=== PATIENT | female | born 1995 | race Caucasian/White ===

== ENCOUNTER 2020-01-09 14:56 | Outpatient (CLI) | payer BC, SELFPAY ==
--- NOTE | ~2020-01-09 | US_ITS ---
EXAMINATION: US OB follow up DATE: 01/09/2020 15:47 INDICATION: Estimated weight during second trimester TECHNIQUE: Real-time ultrasound of the pelvis was performed. The interpreting radiologist was not pre sent for the study. COMPARISON: 11/10/2019 FINDINGS: There is a single living fetus in vertex presentation. The placenta is posterior and 10 cm from the internal cervical os. cardiac activity and movement are noted. heart rate is 133 beats per minute (bpm). The amniotic fluid index is subjectively normal. The following biometric data were obtained: Biparietal diameter (BPD): 7.2 cm; head circumference (HC): 27.6 cm; abdominal circumference (AC): 28 .6 cm; femur length (FL): 6.0 cm. These measurements are concordant. Estimated weight is 1831 g +/- 274 g, which correlates with the >97th percentile when 04/02/2020 is used as estimated date of delivery. As single measurements, these parameters are each equal to the following estimated gestational ages w ith ranges of +/- 2 standard deviations: BPD: 29 weeks 0 days +/- 2 weeks 1 days. HC: 30 weeks 2 days +/- 3 weeks 0 days. AC: 32 weeks 5 days +/- 3 weeks 0 days. FL: 31 weeks 4 days +/- 3 weeks 0 days. estimated gestational age based solely on measurements from this exam is 30 weeks 6 days +/- 2 weeks 1 days. IMPRESSION: 1. Single living fetus in vertex presentation. 2. Estimated weight is 1831 g +/- 274 g, which correlates with the >97th percentile when 04/02/20 20 is used as estimated date of delivery. Reviewed, dictated and finalized at location A. 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 Single living fetus in vertex presentation. 2. Estimated weight is 1831 g +/- 274 g, which correlates with the >97th percentile when 04/02/2020 is used as estimated date of delivery.
== END 2020-01-09 14:57 | disposition home or self-care (01) ==
PROVIDERS: PCP Family Medicine; Visit Provider Obstetrics & Gynecology
DX: O36.63X0 Maternal care for excessive fetal growth, third trimester, not applicable or unspecified (principal)
CPT/HCPCS: 76816

== ENCOUNTER 2020-01-17 15:25 | Observation (INO) | payer BC, SELFPAY ==
[2020-01-17] VITALS (8 sets, daily range): BP systolic 104; BP diastolic 58; PULSE 109–136; RESP 20; TEMP 36.9; O2SAT 95–100
[2020-01-17] MEDS: TERBUTALINE SULFATE 1 MG/ML VIAL 0.25 MG SUB-Q (16:25)
--- NOTE | 2020-01-22 08:10 | PM.OBTRLD ---
OB - Triage/Final Diagnosis Final Diagnosis (1) Cramping affecting , antepartum: Code(s): O26.899 - Other specified related conditions, unspecified trimester; R10.9 - Unspecified abdominal pain Status: Acute
== END 2020-01-17 18:20 | disposition home or self-care (01) ==
PROVIDERS: Admitting Provider Obstetrics & Gynecology Gynecology; PCP Family Medicine; Visit Provider Obstetrics & Gynecology Gynecology
DX: O26.893 Other specified pregnancy related conditions, third trimester (principal); R10.9 Unspecified abdominal pain; Z3A.29 29 weeks gestation of pregnancy
CPT/HCPCS: 96372; G0378; G0379; J3105

== ENCOUNTER 2020-01-26 17:31 | Observation (INO) | payer BC, SELFPAY ==
[2020-01-26 17:51] VITALS: BMI 49.5
--- NOTE | 2020-01-26 17:51 | OBADM ---
This patient, Stacey Lin, admitted to the OB room 116 at 1731 for observation for decreased movement and contractions. Patient/family oriented to hospital policies and general routines including ID bracelet, bed and alarms, visiting hours, pain management, procedures, bathroom and other care routines, personal items, smoking policy, room service/diet, and visiting hours. Patient/Family are encouraged to report perceived risks to care and to ask questions if they do not understand what they are told or what they should do.
[2020-01-26 17:58] VITALS: BP 114/74; PULSE 105
[2020-01-26 18:00] VITALS: BP 118/71; PULSE 103; RESP 18; TEMP 36.5
[2020-01-26] MEDS: TERBUTALINE SULFATE 1 MG/ML VIAL 0.25 MG SUB-Q (19:03)
[2020-01-26 20:15] VITALS: BP 119/69; PULSE 92
--- NOTE | 2020-02-05 09:27 | PM.OBTRLD ---
OB - Triage/Final Diagnosis Visit Information Reason for evaluation: decreased movement and threatened labor
== END 2020-01-26 20:30 | disposition home or self-care (01) ==
PROVIDERS: Admitting Provider Obstetrics & Gynecology Gynecology; PCP Family Medicine; Visit Provider Obstetrics & Gynecology Gynecology
DX: O47.03 False labor before 37 completed weeks of gestation, third trimester (principal); O36.8130 Decreased fetal movements, third trimester, not applicable or unspecified; Z3A.30 30 weeks gestation of pregnancy
CPT/HCPCS: 96372; G0378; G0379; J3105

== ENCOUNTER 2020-02-11 14:51 | Observation (INO) | payer BC, SELFPAY ==
[2020-02-11] VITALS (14 sets, daily range): BP systolic 115; BP diastolic 67; PULSE 97–117; TEMP 37.2; O2SAT 95–99; BMI 42.7
[2020-02-11] MEDS: FAMOTIDINE 20 MG TABLET PO (16:03)
[2020-02-11] MEDS: TERBUTALINE SULFATE 1 MG/ML VIAL 0.25 MG SUB-Q ×2 (16:03→16:35)
[2020-02-11 16:14] LABS: Add Urine Microscopic? NO; Appearance Urine Clear (Clear); Bilirubin Urine Negative (Negative); Blood Urine Negative (Negative); Color Urine Yellow (Yellow); Glucose Urine UA Negative (Negative); Ketones Urine Negative (Negative); Leukocyte Esterase Ur Negative LEU/UL (NEGATIVE); Nitrate Urine Negative (Negative); Protein Urine Negative (Negative); Specific Grav Ur 1.016 (1.001-1.035); Urobilinogen Urine Negative mg/dL (<2.0)
[2020-02-11 16:39] LABS: Fetal Fibronectin Negative
--- NOTE | 2020-02-11 17:11 | OBADM ---
This patient, Stacey Lin, admitted to the OB room OB Post 116 for observation. Patient/family oriented to hospital policies and general routines including ID bracelet, bed and alarms, visiting hours, pain management, procedures, bathroom and other care routines, personal items, smoking policy, room service/diet, and visiting hours. Patient/Family are encouraged to report perceived risks to care and to ask questions if they do not understand what they are told or what they should do.
--- NOTE | 2020-02-11 17:15 | PC.NURSE ---
1540- on unit, reviewed fhr strip, order received for terbutaline,SVE, and FFN.
--- NOTE | 2020-02-11 17:15 | PC.NURSE ---
1650- on unit,reviewed fhr strip and lab results. Discharge order received.
--- NOTE | 2020-02-11 17:19 | P.PNOB_ITS ---
OB - Triage/Final Diagnosis Visit Information Date of evaluation: 02/11/20 Comments/Additional reasons for admission: contractions Evaluation Laboratory results: Laboratory Tests 02/11/20 02/11/20 16:01 16:01 Urine Color Yellow Urine Appearance Clear Urine pH 6.0 Ur Specific [place] 1.016 Urine Protein Negative Urine Glucose (UA) Negative Urine Ketones Negative Ur Blood (Man) Negative Urine Nitrate Negative Urine Bilirubin Negative Urine Urobilinogen Negative Ur Leukocyte Esterase Negative Fibronectin Negative Vital signs: Vital Signs - 24 hr 02/11/20 15:19 02/11/20 15:58 02/11/20 16:00 Temperature 37.2 C Pulse Rate 104 H Blood Pressure 115/67 Pulse Oximetry 96 02/11/20 16:03 02/11/20 16:08 02/11/20 16:13 Temperature Pulse Rate Blood Pressure Pulse Oximetry 95 95 96 02/11/20 16:18 02/11/20 16:23 02/11/20 16:28 Temperature Pulse Rate Blood Pressure Pulse Oximetry 95 98 99 02/11/20 16:33 02/11/20 16:38 02/11/20 16:43 Temperature Pulse Rate Blood Pressure Pulse Oximetry 99 98 99 02/11/20 16:48 02/11/20 16:53 Temperature Pulse Rate Blood Pressure Pulse Oximetry 98 99
== END 2020-02-11 17:00 | disposition home or self-care (01) ==
PROVIDERS: Admitting Provider Obstetrics & Gynecology; PCP Family Medicine; Visit Provider Obstetrics & Gynecology
DX: O60.03 Preterm labor without delivery, third trimester (principal); Z3A.32 32 weeks gestation of pregnancy
CPT/HCPCS: 81003; 82731; 87086; 87088; 96372; A9270; G0378; G0379; J3105

== ENCOUNTER 2020-02-20 09:48 | Outpatient (CLI) | payer BC, SELFPAY ==
--- NOTE | ~2020-02-20 | US_ITS ---
EXAMINATION: US OB follow up DATE: 02/20/2020 10:18 INDICATION: Size and dating assessment during third trimester TECHNIQUE: Real-time ultrasound of the pelvis was performed. The interpreting radiologist was not pre sent for the study. COMPARISON: 01/09/2020 FINDINGS: There is a single living fetus in vertex presentation. The placenta is posterior. car diac activity and movement are noted. heart rate is 144 beats per minute (bpm). The amnio tic fluid index is 16.6 cm which is normal. The following biometric data were obtained: Biparietal diameter (BPD): 8.7 cm; head circumference (HC): 30.6 cm; abdominal circumference (AC): 32 .2 cm; femur length (FL): 6.7 cm. These measurements are concordant. Estimated weight is 2680 g +/- 402 g, which correlates with the 84th percentile when 04/02/2020 i s used as estimated date of delivery. The following biometric data were obtained: Biparietal diameter (BPD): 8.73 cm; head circumference (HC): 0.6 cm; abdominal circumference (AC): 32 .2 cm; femur length (FL): 6.7 cm. These measurements are concordant. Estimated weight is 2680 g +/- 2 g, which correlates with the 84th percentile when 04/02/2020 is used as estimated date of delivery. As single measurements, these parameters are each equal to the following estimated gestational ages w ith ranges of +/- 2 standard deviations: BPD: 35 weeks 1 days ( 32 weeks 1 days - 38 weeks 2 days). HC: 34 weeks 1 days ( 31 weeks 1 days - 37 weeks 1 days). AC: 36 weeks 1 days ( 33 weeks 1 days - 39 weeks 1 days). FL: 34 weeks 5 days ( 31 weeks 5 days - 37 weeks 5 days). estimated gestational age based solely on measurements from this exam is 35 weeks 0 days +/- 2 weeks 3 days. IMPRESSION: 1. Single living fetus in vertex presentation. 2. Estimated weight is 2680 g +/- 2 g, which correlates with the 84th percentile when 04/02/2020 is used as estimated date of delivery. 3. Normal amniotic fluid index. Reviewed, dictated and finalized at location B. IMPRESSION: 1. Single living fetus in vertex presentation. 2. Estimated weight is 2680 g +/- 2 g, which correlates with the 84th per centile when 04/02/2020 is used as estimated date of delivery. 3. Normal amniotic fluid index.
== END 2020-02-20 09:49 | disposition home or self-care (01) ==
PROVIDERS: PCP Family Medicine; Visit Provider Obstetrics & Gynecology Gynecology
DX: O36.60X0 Maternal care for excessive fetal growth, unspecified trimester, not applicable or unspecified (principal); Z3A.00 Weeks of gestation of pregnancy not specified
CPT/HCPCS: 76816

== ENCOUNTER 2020-03-03 15:04 | Observation (INO) | payer BC, SELFPAY ==
[2020-03-03 15:30] VITALS: TEMP 36.3
[2020-03-03 15:31] VITALS: BP 105/66; PULSE 90
[2020-03-03 15:46] VITALS: BP 109/69; PULSE 80
[2020-03-03 16:00] VITALS: BMI 51.6
[2020-03-03 16:01] VITALS: BP 109/69; PULSE 83
[2020-03-03 16:16] VITALS: BP 108/71; PULSE 81
[2020-03-03 16:31] VITALS: BP 109/67; PULSE 83
--- NOTE | 2020-03-03 16:45 | PC.NURSE ---
1613- called, informed pt came in stating she has had lower back pain since last night and has been kennedi around every 5 minutes today. Informed SVE is 0.5 cm and thick, orders received to discharge pt home with labor precautions.
--- NOTE | 2020-03-05 07:35 | PM.OBTRLD ---
OB - Triage/Final Diagnosis Final Diagnosis (1) False labor: Code(s): O47.9 - False labor, unspecified Status: Acute
== END 2020-03-03 16:40 | disposition home or self-care (01) ==
PROVIDERS: Admitting Provider Obstetrics & Gynecology Gynecology; PCP Family Medicine; Visit Provider Obstetrics & Gynecology Gynecology
DX: O47.03 False labor before 37 completed weeks of gestation, third trimester (principal); Z3A.35 35 weeks gestation of pregnancy
CPT/HCPCS: G0378; G0379

== ENCOUNTER 2020-03-20 14:32 | Inpatient (IN) | payer BC, SELFPAY ==
[2020-03-20] VITALS (51 sets, daily range): BP systolic 88–129; BP diastolic 44–83; PULSE 58–114; TEMP 36.4–37.1; O2SAT 93–100; BMI 52.7
--- NOTE | 2020-03-20 15:53 | LDADM ---
This patient, Stacey Lin, was admitted to Labor/Delivery/Recovery 107 on 03/20/20 at 14:32. Plans for labor, pain management and were discussed with patient. Patient/family oriented to hospital policies and general routines including ID bracelet, bed and alarms, visiting hours, pain management, procedures, bathroom and other care routines, personal items, smoking policy, room service/diet and guest tray routines, security routines, and visiting hours. Patient/Family are encouraged to report perceived risks to care and to ask questions if they do not understand what they are told or what they should do. See OBIX for further documentation.
[2020-03-20 15:57] LABS: Glucose Point of Care 84 (65-105)
[2020-03-20 15:59] LABS: Basophils Absolute Auto 0.1 K/mm3 (0.0-0.1); Basophils Percent Auto 0.6 % (0.2-1.2); Eosinophils Percent Auto 0.3 % (0-4.4); Immature Granulocyte Absolute 0.51 K/mm3 (0.00-0.031); Immature Granulocyte Percent A 4.4 % (0-0.5); Lymphocytes Absolute Auto 1.53 K/mm3 (0.9-3.2); Lymphocytes Percent Auto 13.2 % (18.3-44.2); Mean Corpuscular HGB Conc 33.3 g/dl (32-36); Mean Corpuscular Hemoglobin 30.2 pg (26-34); Mean Corpuscular Volume 90.7 fl (80-100); Mean Platelet Volume 10.9 fl (7.4-10.4); Monocytes Absolute Auto 1.2 K/mm3 (0.1-0.6); Monocytes Percent Auto 10.7 % (2.6-8.5); Neutrophils Absolute Auto 8.2 K/mm3 (1.3-6.7); Neutrophils Percent Auto 70.8 % (45.5-73.1); Platelet Count Result 200 k/mm3 (150-375); Red Blood Count 3.97 M/mm3 (4.2-5.4); Red Cell Distribution Width 14.5 % (11.5-14.5); White Blood Count 11.6 K/mm3 (4.5-10.0)
[2020-03-20] MEDS: LACTATED RINGERS 1,000 ML 125 ML IV CONT ×3 (16:22→23:52)
[2020-03-20] MEDS: OXYTOCIN 30 UNITS/NS 500 ML 30 UNITS/500 ML BAG 6 UNITS IV CONT (16:23)
--- NOTE | 2020-03-20 17:24 | P.PNAN_ITS ---
Anes - Eval Pre Procedure Procedure: Labor epidural Date/Time: 03/20/20 17:24 Surgeon: Beatriz Preop Diagnosis: pain during labor Pre Op Diagnosis: SROM Patient Data Age: 24 Gender: F Height: 1.52 m Weight: 122.5 kg Last Vital Signs Pulse 101 H 03/20/20 17:16 BP 126/68 03/20/20 17:16 Allergies Allergy/AdvReac Type Severity Reaction Status Date / Time No Known Allergies Allergy Verified 03/04/20 13:29 Home Medications Medication Instructions Recorded Confirmed Type PNV cmb#95-ferrous fumarate-FA 1 tablet PO DAILY 10/12/19 03/20/20 History [] sertraline [Zoloft] 50 mg PO DAILY 10/12/19 03/20/20 History ergocalciferol (vitamin D2) 50,000 unit PO WEEKLY 01/26/20 03/20/20 History [Vitamin D2] ferrous sulfate 325 mg PO BID 01/26/20 03/20/20 History Laboratory Tests 03/20/20 03/20/20 03/20/20 15:47 15:47 15:52 WBC 11.6 K/mm3 H K/mm3 (4.5-10.0) RBC 3.97 M/mm3 L M/mm3 (4.2-5.4) Hgb 12.0 g/dL g/dL (12.0-15.0) Hct 36.0 % L % (37.0-47.0) MCV 90.7 fl fl (80-100) MCH 30.2 pg pg (26-34) MCHC 33.3 g/dl g/dl (32-36) RDW 14.5 % % (11.5-14.5) Plt Count 200 k/mm3 k/mm3 (150-375) MPV 10.9 fl H fl (7.4-10.4) Immature Gran % (Auto) 4.4 % H % (0-0.5) Neut % (Auto) 70.8 % % (45.5-73.1) Lymph % (Auto) 13.2 % L % (18.3-44.2) [place] % (Auto) 10.7 % H % (2.6-8.5) Eos % (Auto) 0.3 % % (0-4.4) Baso % (Auto) 0.6 % % (0.2-1.2) Lymph # (Auto) 1.53 K/mm3 K/mm3 (0.9-3.2) [place] # (Auto) 1.2 K/mm3 H K/mm3 (0.1-0.6) Eos # (Auto) 0.0 K/mm3 K/mm3 (0-0.3) Baso # (Auto) 0.1 K/mm3 K/mm3 (0.0-0.1) Abs Immat Gran (auto) 0.51 K/mm3 H K/mm3 (0.00-0.031) Absolute Neuts (auto) 8.2 K/mm3 H K/mm3 (1.3-6.7) Absolute Nucleated RBC 0.0 K/mm3 K/mm3 (0.0-0.012) Nucleated RBC % 0.0 % % (0.0-0.2) POC Capillary Glucose 84 mg/dl mg/dl (65-105) RPR Pending Patient hx anesthesia problems: none Family hx anesthesia problems: none PMFSH Past Medical History Medical History (Updated 03/20/20 @ 17:25 by Jaye Ashley CRNA) Depression Morbid obesity with BMI of 50.0-59.9, adult Family History Family History (Updated 03/04/20 @ 13:31 by Reji Rojas RN) Mother Depression Family history of obesity Hypertension Social History Social History Smoking status: Never smoker Second hand tobacco smoke exposure: No Alcohol intake: never Substance use: never Spiritual care concerns: No Exam Day of Procedure 03/20/20 17:24
[2020-03-20 20:14] LABS: Glucose Point of Care 85 (65-105)
[2020-03-20] MEDS: ACETAMINOPHEN 325 MG TABLET 650 MG PO (21:59)
[2020-03-21] VITALS (158 sets, daily range): BP systolic 69–128; BP diastolic 29–80; PULSE 26–189; RESP 18; TEMP 36.1–38; O2SAT 76–100
[2020-03-21 00:35] LABS: Glucose Point of Care 100 (65-105)
[2020-03-21 02:19] LABS: Glucose Point of Care 93 (65-105)
[2020-03-21] MEDS: LACTATED RINGERS 1,000 ML 125 ML IV CONT ×2 (02:56→06:56)
[2020-03-21] MEDS: AMPICILLIN 2 GM/NS 100 ML 2 GM/100 ML BAG IVPB (04:05)
[2020-03-21 04:47] LABS: Glucose Point of Care 82 (65-105)
[2020-03-21] MEDS: ONDANSETRON INJ 4 MG/2 ML VIAL IV PUSH (05:24)
[2020-03-21 07:14] LABS: Glucose Point of Care 76 (65-105)
--- NOTE | 2020-03-21 07:41 | WPDOBADMIT ---
Obstetrics - Admit Note Admission Note: record reviewed. No pertinent additions to the history and/or any subsequent changes in the physical findings that are not consistent with the expected course of the were found. Additions to the history and/or subsequent changes in the physical findings follow. None.Here for SROM. Augmented with Pitocin and now 9.5 cm. FHTs reactive.
[2020-03-21] MEDS: AMPICILLIN 1 GM/NS 50 ML 1 GM/50 ML BAG IVPB (07:46)
--- NOTE | 2020-03-21 10:08 | P.PCNOB_ITS ---
OB - Delivery Note Procedure Delivery date: 03/21/20 Procedure: events: Prolonged Rupture of Membrane Intrapartal events: None Induction method: per pitocin protocol Delivery monitor: external FHT and external uterine Route of delivery: Laceration description: Perineal - 2nd Degree Delivery repair: vicryl (3-0 ) Specimen: Yes Estimated blood loss (mL): 500 Anesthesia type: Local Disposition: floor [place] Baby Weeks of gestation at delivery: 38 Infant gender: Male Weight (pounds): 8 Weight (ounces): 9 presentation: vertex position: Right Occiput Anterior Placenta delivery description: Spontaneous cord vessel description: 3 Vessels score one minute: 8 score five minutes: 8
--- NOTE | 2020-03-21 10:10 | PM.OBDSVD ---
DS: Diagnosis Discharge Diagnosis (1) 38 weeks gestation of : Code(s): Z3A.38 - 38 weeks gestation of Status: Acute (2) (normal spontaneous vaginal delivery): Code(s): O80 - Encounter for full-term uncomplicated delivery Status: Acute (3) GDM, class A2: Code(s): O24.419 - Gestational diabetes mellitus in , unspecified control Status: Acute OB - DS: Summary OB Procedures : NST and Ultrasound OB Procedures Intrapartum: Spontaneous Vag Delivery OB Procedures: : None Peripartum Data Delivery Method: Natural Vaginal Laceration description: Perineal - 2nd Degree complications: none Status at Discharge Functional status at discharge: independent ambulation Overall status at discharge: patient is progressing back to baseline Time Spent with Patient Time attestation: Total time spent providing and/or coordinating discharge services: DS: Data Data Completed and Pending Labs on day of discharge: Labs from last 24 hours 03/21/20 03/21/20 03/21/20 07:12 04:44 02:16 WBC RBC Hgb Hct MCV MCH MCHC RDW Plt Count MPV Immature Gran % (Auto) Neut % (Auto) Lymph % (Auto) [place] % (Auto) Eos % (Auto) Baso % (Auto) Lymph # (Auto) [place] # (Auto) Eos # (Auto) Baso # (Auto) Abs Immat Gran (auto) Absolute Neuts (auto) Absolute Nucleated RBC Nucleated RBC % POC Capillary Glucose 76 82 93 RPR Blood Type Antibody Screen 03/21/20 03/20/20 03/20/20 00:32 21:08 20:08 WBC RBC Hgb Hct MCV MCH MCHC RDW Plt Count MPV Immature Gran % (Auto) Neut % (Auto) Lymph % (Auto) [place] % (Auto) Eos % (Auto) Baso % (Auto) Lymph # (Auto) [place] # (Auto) Eos # (Auto) Baso # (Auto) Abs Immat Gran (auto) Absolute Neuts (auto) Absolute Nucleated RBC Nucleated RBC % POC Capillary Glucose 100 85 RPR Blood Type O Positive Antibody Screen Negative 03/20/20 03/20/20 03/20/20 15:52 15:47 15:47 WBC 11.6 H RBC 3.97 L Hgb 12.0 Hct 36.0 L MCV 90.7 MCH 30.2 MCHC 33.3 RDW 14.5 Plt Count 200 MPV 10.9 H Immature Gran % (Auto) 4.4 H Neut % (Auto) 70.8 Lymph % (Auto) 13.2 L [place] % (Auto) 10.7 H Eos % (Auto) 0.3 Baso % (Auto) 0.6 Lymph # (Auto) 1.53 [place] # (Auto) 1.2 H Eos # (Auto) 0.0 Baso # (Auto) 0.1 Abs Immat Gran (auto) 0.51 H Absolute Neuts (auto) 8.2 H Absolute Nucleated RBC 0.0 Nucleated RBC % 0.0 POC Capillary Glucose 84 RPR Pending Blood Type Antibody Screen Discharge Plan Discharge Attending physician on discharge: Kathya Henderson Discharging Clinician: Kathya Henderson Anticipated Discharge Date/Time: 03/23/20 08:11 Patient Disposition: Home, Self-Care Activity: pelvic rest Diet: regular Discharge Instructions: Education: Mom and Baby Guide Given to: Mother Follow-Up: Call your delivering provider's office for an appointment to be seen in: 6 Weeks Mom and baby should come to the [facility] for the follow-up appointment. Appointment Date/Time: Monday, March 23, 2020 at 9:00 am What to expect at your follow-up visit: Blood Pressure Check Physical Assessment Call [phone] if you are unable to keep your appointment time. BREAST CARE: 1. Wear a snug supportive bra. 2. For engorgement discomfort: Breast Feeding: A. Apply warm moist washcloths B. Express milk as needed to relieve engorgement C. Wear loose clothing 3. For sore nipples: A. Identify correct latch-on B. Apply warm moist washcloths before and after nursing C. Air dry nipples after nursing D. May apply Lansinoh cream to nipples EPISIOTOMY/PERINEAL CARE: 1. U
[2020-03-21] MEDS: OXYTOCIN 30 UNITS/NS 500 ML 30 UNITS/500 ML BAG 125 UNITS IV CONT (10:12)
[2020-03-21 11:25] LABS: Rapid Plasma Reagin Non-Reactive (NonReactive)
[2020-03-21] MEDS: ACETAMINOPHEN 325 MG TABLET 650 MG PO (11:58)
[2020-03-21] MEDS: BENZOCAINE 20% AER SPR (*SP) 56 GM CAN 1 SPRAY TOPICAL (12:15)
[2020-03-21] MEDS: WITCH HAZEL 40 PADS 1 PAD TOPICAL (12:15)
[2020-03-21] MEDS: IBUPROFEN 600 MG TABLET PO ×2 (13:31→20:33)
[2020-03-21] MEDS: LANOLIN (LANSINOH) 7.5 GM CREAM 1 APPLIC TOPICAL (13:32)
--- NOTE | 2020-03-21 18:58 | PC.NURSE ---
1247 Pt admitted to room 287 per wheelchair from labor and delivery after vaginal delivery today with Dr. Henderson. Mother is a and is choosing to breast feed infant. /FOB present. Couple oriented to room, staffing and procedures. Pt's VSS and assessment WNL. Admission folder reviewed with couple.
[2020-03-21] MEDS: SERTRALINE HCL 50 MG TABLET PO (20:33)
[2020-03-22 05:43] LABS: Hematocrit 27.4 % (37.0-47.0); Hemoglobin 9.2 g/dL (12.0-15.0)
[2020-03-22] MEDS: IBUPROFEN 600 MG TABLET PO (05:45)
[2020-03-22 08:20] VITALS: BP 115/72; PULSE 88; RESP 18; TEMP 37.6; O2SAT 88
[2020-03-22] MEDS: POLYSACCHARIDE IRON COMPLEX 150 MG CAPSULE PO (10:17)
[2020-03-22] MEDS: MULTIVIT/MIN/PREN/FOL AC/IRON TABLET 1 TAB PO (10:17)
[2020-03-22] MEDS: DOCUSATE SODIUM 100 MG CAPSULE PO (10:18)
--- NOTE | 2020-03-22 12:08 | PM.OBPNVD ---
OB - PN: Subj Subjective Date/time seen: 03/22/20 12:08 no cmomplaints desires home today OB - PN: Obj Data Labs CBC & Chem 7: 03/22/20 05:39 Labs: Laboratory Results - last 24 hr 03/22/20 05:39 Hgb 9.2 L Hct 27.4 L OB - PN A/P Assessment and Plan (1) (normal spontaneous vaginal delivery): Code(s): O80 - Encounter for full-term uncomplicated delivery Status: Acute Assessment and Plan: ppd 1 d/c home f/u in 6 weeks Time Spent With Patient Time: Total time spent is greater than 50% in coordination of care (as documented) at patient's floor/unit and/or counseling patient: Exam GI: GI Palp: Yes Soft to palpation and Yes Other GI palpation findings present (firm fundus)
--- NOTE | 2020-03-22 12:15 | WPDANLDPN2 ---
Anes-Prog Note L&D Date/Time: 03/22/20 12:15 Comfortable throughout: labor and delivery Neuraxial method: epidural Epidural/Spinal procedure site: clean & non-tender Neuro status: Neuro function grossly intact. Cardiovascular status: normal Respiratory status: normal Airway patency: baseline Mental status: baseline Post-Op hydration status: normal Vital Signs: Last Vital Signs Temp 37.6 C 03/22/20 08:20 Pulse 88 03/22/20 08:20 Resp 18 03/22/20 08:20 BP 115/72 03/22/20 08:20 Pulse Ox 88 L 03/22/20 08:20 Post-procedural complaints: none Patient feedback: Patient satisfied with anesthetic care.
--- NOTE | 2020-03-22 14:41 | PC.NURSE ---
Patient viewed the discharge video Mother & Baby Care, The First Two Weeks . Patient was given the opportunity and encouraged to ask questions. Patient verbalized understanding of information shared and has been given the mother/baby guide for home reference.
--- NOTE | 2020-03-22 15:15 | PC.NURSE ---
Observed mother is able to independently latch with appropriate positioning/alignment. She denies any nipple discomfort, is feeding as required and waking infant to feed if needed. has had 8 effective feedings in the past 24 hours, and is currently meeting outcomes for weight, output, jaundice and feeding frequencies. Mother states she feels confident to continue effective at home. Advised mother to stimulate while at breast to keep awake and effectively feeding for increased intake and stimulation of milk supply. Reviewed transition to breast milk, signs of adequate intake, and engorgement/relief. Instructed to call ICP if intake/output less than required. Reviewed regular medications mother is taking. Information provided per Melina. Reviewed community resources on the [facility] website and in the Mom/Baby guide. Information on outpatient services provided. Mother has no further questions at this time.
[2020-03-23 09:03] VITALS: BP 119/79; PULSE 74; RESP 20; TEMP 36.8; O2SAT 100
== END 2020-03-22 16:02 | disposition home or self-care (01) | DRG 807 ==
LOC: ANHLDR 03-25 12:40 → ANHOB2 03-25 12:40
PROVIDERS: Admitting Provider Obstetrics & Gynecology Gynecology; PCP Family Medicine; Visit Provider Obstetrics & Gynecology
DX: O42.92 Full-term premature rupture of membranes, unspecified as to length of time between rupture and onset of labor (principal); Z37.0 Single live birth; Z3A.38 38 weeks gestation of pregnancy; O24.419 Gestational diabetes mellitus in pregnancy, unspecified control; O99.214 Obesity complicating childbirth; E66.01 Morbid (severe) obesity due to excess calories; O99.344 Other mental disorders complicating childbirth; F32.9 Major depressive disorder, single episode, unspecified; O70.1 Second degree perineal laceration during delivery; O36.8330 Maternal care for abnormalities of the fetal heart rate or rhythm, third trimester, not applicable or unspecified
CPT/HCPCS: 36415; 85014; 85018; 85025; 86592; 86850; 86900; 86901; 88307; A9270; J0290; J2405; J2590; J2795; J3010; J7120

== ENCOUNTER 2020-06-04 19:48 | Emergency (ER) | payer BC, SELFPAY ==
[2020-06-04 19:55] VITALS: BP 124/69; PULSE 83; RESP 18; TEMP 36.7; O2SAT 100
--- NOTE | 2020-06-04 19:59 | ED.GENADULT ---
HPI - General Adult General Stated complaint: pain in side Time Seen by Provider: 06/04/20 19:59 Source: patient Mode of arrival: ambulatory Limitations: no limitations History of Present Illness HPI narrative: 24-year-old female patient presents to the [facility] with complaints of abdominal pain that started suddenly about 5:00 today. Denies any fevers, nausea, vomiting or diarrhea. Denies any chest pain or shortness of breath. Patient states that she was giving her son a bath and went to go and stand up and suddenly had some pain to the right side. Patient states she does still have her gallbladder and appendix. Patient states that she did give to a baby about 2 months ago. Related Data Home Medications Medication Instructions Recorded Confirmed PNV cmb#95-ferrous fumarate-FA 1 tablet PO DAILY 10/12/19 03/20/20 [] sertraline [Zoloft] 50 mg PO DAILY 10/12/19 03/20/20 ergocalciferol (vitamin D2) 50,000 unit PO WEEKLY 01/26/20 03/20/20 [Vitamin D2] ferrous sulfate 325 mg PO BID 01/26/20 03/20/20 Allergies Allergy/AdvReac Type Severity Reaction Status Date / Time No Known Allergies Allergy Verified 03/04/20 13:29 Review of Systems Review of Systems: Narrative: CONSTITUTIONAL: Denies fever, chills, or sweats. EYES: Denies visual changes, redness, or discharge. ENT: Denies rhinorrhea, congestion, sore throat, or otalgia. CARDIOVASCULAR: Denies chest pain, palpitations, or edema. RESPIRATORY: Denies cough or dyspnea. GASTROINTESTINAL: Positive right side abdominal pain, denies nausea, vomiting, or diarrhea. GENITOURINARY: Denies dysuria or hematuria. SKIN: Denies rash or itching. MUSCULOSKELETAL: Denies back pain, joint pain, or myalgia. NEUROLOGIC: Denies headache, numbness, or weakness. PSYCHIATRIC: Denies anxiety or depression. [facility] Past Medical History Medical History Depression Morbid obesity with BMI of 50.0-59.9, adult Family History Family History (Updated 03/04/20 @ 13:31 by Reji Rojas RN) Mother Depression Family history of obesity Hypertension Social History Social History Smoking status: Never smoker Second hand tobacco smoke exposure: No Alcohol intake: never Substance use: never Spiritual care concerns: No Comments At the time of my signature I agree with nursing past medical history, surgical, social, and family history. There is no relevant family history pertinent to the presenting complaint. Exam Narrative: Exam Narrative: GENERAL: Well-appearing, well-nourished, and in no acute distress. HEAD: Normocephalic, atraumatic. EYES: PERRLA and EOMI. ENT: Nares clear, no rhinorrhea or epistaxis. Mucous membranes moist. NECK: Supple. No lymphadenopathy CHEST: Clear to auscultation. No respiratory distress. HEART: Regular rate and rhythm. No murmur heard. Normal peripheral pulses. ABDOMEN: Soft, flat, distended. No guarding, rebound tenderness, or rigid. Patient does have tenderness on palpation to the right upper quadrant. No pulsatilla masses. Bowel sounds present in all four quadrants. No organomegaly. Negative [place]?s sign. No periumbicial tenderness. No Supra public tenderness or distension. Good femoral pulses bilaterally. No hernia noted. No scars or surface trauma. EXTREMITIES: Normal range of motion. No edema. SKIN: Warm, dry, no rash. NEURO: No focal deficits. Alert and oriented x3. Course Vital Signs Vital signs: Vital signs reviewed. Transfer Transfered to: [place] Transfer rationale: Right upper quadrant abdominal pain Accepting physician: ALBINA Harris Transfer comments: Called to [place] [facility] and spoke with ALBINA Harris and gave him report on patient that we are sending over there with right upper quadrant abdominal pain that started suddenly at 5:00 today. No nausea, vomiting or diarrhea. Patient's vitals are stable. Patient nehemiah
== END 2020-06-04 20:06 | disposition short-term general hospital (02) ==
PROVIDERS: Emergency Provider Nurse Practitioner Family; PCP Family Medicine
DX: R10.11 Right upper quadrant pain (principal); F32.9 Major depressive disorder, single episode, unspecified; E66.01 Morbid (severe) obesity due to excess calories; Z68.43 Body mass index [BMI] 50.0-59.9, adult
CPT/HCPCS: 99212; G0463

== ENCOUNTER 2020-08-17 10:30 | Outpatient (CLI) | payer BC, SELFPAY ==
--- NOTE | ~2020-08-17 | US_ITS ---
EXAMINATION: US OB <=14 wk fetus w TV DATE: 08/17/2020 11:18 INDICATION: History of spontaneous . TECHNIQUE: Real-time transabdominal and transvaginal pelvic ultrasound was performed. COMPARISON: None. FINDINGS: TRANSABDOMINAL ULTRASOUND: The uterus measures 12.4 x 4.3 x 5.7 cm. TRANSVAGINAL ULTRASOUND: There is an intrauterine gestational sac. A possible yolk sac is identified. A mass that may be a pole demonstrates a crown rump length that measures 7 mm, which correlat es with an estimated gestational age of 6 weeks and 4 day(s) (+/-) 4 day(s). heart motion is id entified measuring 118 beats per minute (bpm) by M-mode Doppler. There is a small subchorionic hemato ma. The right ovary is not visualized. The left ovary measures 2.9 x 1.7 x 2.4 cm. There is no free f luid in the pelvis. IMPRESSION: 1. Single living intrauterine gestation with estimated date of delivery of 04/05/2021. 2. Small subchorionic hematoma. Reviewed, dictated and finalized at location A. IMPRESSION: 1. Single living intrauterine gestation with estimated date of delivery of 04/05. 2. Small subchorionic hematoma.
== END 2020-08-17 10:31 | disposition home or self-care (01) ==
PROVIDERS: PCP Family Medicine; Visit Provider Obstetrics & Gynecology Gynecology
DX: O26.21 Pregnancy care for patient with recurrent pregnancy loss, first trimester (principal); O36.8911 Maternal care for other specified fetal problems, first trimester, fetus 1
CPT/HCPCS: 76801; 76817

== ENCOUNTER 2020-09-11 14:01 | Outpatient (CLI) | payer BC, SELFPAY ==
--- NOTE | ~2020-09-11 | US_ITS ---
EXAMINATION: US OB <= 14 weeks fetus DATE: 09/11/2020 14:31 INDICATION: Subchorionic hematoma during first trimester TECHNIQUE: Real-time pelvic transabdominal and transvaginal ultrasound was performed. COMPARISON: 08/17/2020 FINDINGS: The uterus measures 14.5 x 7.2 x 7.4 cm. There is an intrauterine gestational sac. The pre viously described subchorionic hematoma is no longer identified. A yolk sac is identified. hear t motion is identified measuring 173 beats per minute (bpm) by M-mode Doppler. The crown rump l ength measures 3.7 cm, which correlates with an estimated gestational age of 11 weeks and 0 day(s) (+ /-) 5 day(s). The right ovary is not visualized however no right adnexal abnormality is seen. The left ovary measur es 2.9 x 2.1 x 2.3 cm. There is normal vascular flow in the left ovary. There is no free fluid in the pelvis. IMPRESSION: 1. Single live intrauterine . 2. No persistent subchorionic hematoma identified. Reviewed, dictated and finalized at location A.
== END 2020-09-11 14:02 | disposition home or self-care (01) ==
PROVIDERS: PCP Family Medicine; Visit Provider Obstetrics & Gynecology Gynecology
DX: O36.8910 Maternal care for other specified fetal problems, first trimester, not applicable or unspecified (principal)
CPT/HCPCS: 76801

== ENCOUNTER 2020-11-12 09:49 | Outpatient (CLI) | payer BC, SELFPAY ==
--- NOTE | ~2020-11-12 | US_ITS ---
EXAMINATION: US OB /maternal detail DATE: 11/12/2020 10:50 INDICATION: anatomic survey. TECHNIQUE: Real-time ultrasound of the pelvis was performed. COMPARISON: Ultrasound 09/11/2020 FINDINGS: There is a single living fetus in vertex presentation. The placenta is posterior. heart rate i s 146 beats per minute (bpm). The amniotic fluid volume is subjectively normal. The following biometric data were obtained: Biparietal diameter (BPD): 4.5 cm; head circumference (HC): 16.1 cm; abdominal circumference (AC): 13 .8 cm; femur length (FL): 3.1 cm. These measurements are concordant. Estimated weight is 287 g +/- 43 g, which correlates with 48th percentile when 04/06/21 is used a s estimated date of delivery. As single measurements, these parameters are each equal to the following estimated gestational ages w ith ranges of +/- 2 standard deviations: BPD: 19 weeks 5 days (18 weeks 0 days - 21 weeks 3 days). HC: 18 weeks 6 days (17 weeks 3 days - 20 weeks 3 days). AC: 19 weeks 1 days (17 weeks 1 days - 21 weeks 2 days). FL: 19 weeks 4 days (17 weeks 5 days - 21 weeks 2 days). estimated gestational age based solely on measurements from this exam is 19 weeks 2 days +/- 1 weeks 2 days. The cerebral ventricles, cerebellum, cisterna magna, nuchal fold, lip, and visualized portions of the spine are normal. The heart is normal. The diaphragm, stomach, kidneys, and bladder are normal. Ther e are two umbilical arteries to yield a 3-vessel cord. The cord insertion is normal. IMPRESSION: 1. Single living fetus in vertex presentation. 2. Estimated weight is 287 g +/- 43 g, which correlates with 48th percentile when 04/06/21 is us ed as estimated date of delivery. 3. Normal anatomic survey. Reviewed, dictated and finalized at location A. SAWYER IMPRESSION: 1. Single living fetus in vertex presentation. 2. Estimated weight is 287 g +/- 43 g, which correlates with 48th percen tile when 04/06/21 is used as estimated date of delivery. 3. Normal anatomic survey.
== END 2020-11-12 09:50 | disposition home or self-care (01) ==
PROVIDERS: PCP Family Medicine; Visit Provider Nurse Practitioner
DX: Z36.89 Encounter for other specified antenatal screening (principal); Z3A.18 18 weeks gestation of pregnancy
CPT/HCPCS: 76805

== ENCOUNTER 2020-12-23 10:52 | Outpatient (CLI) | payer BC, SELFPAY ==
--- NOTE | ~2020-12-23 | US_ITS ---
EXAMINATION: US OB follow up DATE: 12/23/2020 11:32 INDICATION: Estimated size greater than expected for estimated gestational age during second tr imester . TECHNIQUE: Real-time ultrasound of the pelvis was performed. The interpreting radiologist was not pre sent for the study. COMPARISON: 11/12/2020 FINDINGS: There is a single living fetus in breech presentation. The placenta is fundal. heart rate is 1 35 beats per minute (bpm). The amniotic fluid index is 11.1 cm, which is normal (5th%-95%: 9.7-22.1 cm at 25 weeks estimated gestational age). The following biometric data were obtained: BPD: 6.2 cm -> 25 weeks 0 days Head circumference: 22.8 cm -> 24 weeks 6 days Abdominal circumference: 21.1 cm -> 25 weeks 5 days Femur length: 4.7 cm -> 25 weeks 5 days These measurements are concordant. Head circumference to abdominal circumference ratio: 1.08 (normal range 1.04-1.22). Estimated weight: 825 g (+/-) 124 g. or 1 lbs. 13 oz. (+/-) 4 oz. IMPRESSION: 1. Single living fetus in breech presentation with heart rate of 135 bpm. 2. Normal amniotic fluid index of 11.1 cm. 3. Estimated weight is 59th percentile by Hadlock criteria when 04/06/2021 is used as the estimat ed date of delivery (STEVEN). Please correlate with clinical information or earlier ultrasounds for most accurate STEVEN. Reviewed, dictated and finalized at location B. ASSEMBLER IMPRESSION: 1. Single living fetus in breech presentation with heart rate of 135 bpm. 2. Normal amniotic fluid index of 11.1 cm. 3. Estimated weight is 59th percentile by Hadlock criteria when 04/06/2021 is used as the estimated date of delivery (STEVEN). Please correlate with clinical information or earlier ultrasounds for most accurate STEVEN.
== END 2020-12-23 10:53 | disposition home or self-care (01) ==
LOC: ANHIMG 10:55
PROVIDERS: PCP Family Medicine; Visit Provider Obstetrics & Gynecology Gynecology
DX: O36.63X0 Maternal care for excessive fetal growth, third trimester, not applicable or unspecified (principal); Z3A.00 Weeks of gestation of pregnancy not specified
CPT/HCPCS: 76816

== ENCOUNTER 2021-02-01 14:01 | Observation (INO) | payer BC, SELFPAY ==
[2021-02-01] VITALS (14 sets, daily range): BP systolic 99–114; BP diastolic 40–69; PULSE 95–113; TEMP 36.6; O2SAT 99–100; BMI 52.0
--- NOTE | 2021-02-01 15:11 | OBADM ---
This patient, Stacey Lin, admitted to the OB room OB Post 116 for observation. Patient/family oriented to hospital policies and general routines including ID bracelet, bed and alarms, visiting hours, pain management, procedures, bathroom and other care routines, personal items, smoking policy, room service/diet, and visiting hours. Patient/Family are encouraged to report perceived risks to care and to ask questions if they do not understand what they are told or what they should do. Pt. states she had her covid-19 vaccine yesterday and comes in with reports of h/a, ctxns, SOB, and racing heart. EFM X2 applied, pulse ox applied and v.s. taken. Will continue to monitor and then notify her OB.
--- NOTE | 2021-03-10 01:51 | PM.OBTRLD ---
OB - Triage/Final Diagnosis Visit Information Comments/Additional reasons for admission: I have assessed the risk for this patient, Stacey Lin, and determined that she would benefit from observation care. Final Diagnosis (1) Headache: Code(s): R51.9 - Headache, unspecified Status: Acute (2) contractions: Code(s): O47.9 - False labor, unspecified Status: Acute
== END 2021-02-01 15:08 | disposition home or self-care (01) ==
PROVIDERS: Admitting Provider Obstetrics & Gynecology; PCP Family Medicine; Visit Provider Obstetrics & Gynecology
DX: O47.03 False labor before 37 completed weeks of gestation, third trimester (principal); R51.9 Headache, unspecified; Z3A.30 30 weeks gestation of pregnancy
CPT/HCPCS: G0378; G0379

== ENCOUNTER 2021-02-21 19:13 | Outpatient (RCR) | payer BC, SELFPAY ==
[2021-02-21 19:15] VITALS: BP 106/68; PULSE 104; TEMP 36
--- NOTE | 2021-02-21 19:32 | OBADM ---
This patient, Stacey Lin, admitted to the OB room for observation. Patient/family oriented to hospital policies and general routines including ID bracelet, bed and alarms, visiting hours, pain management, procedures, bathroom and other care routines, personal items, smoking policy, room service/diet, and visiting hours. Patient/Family are encouraged to report perceived risks to care and to ask questions if they do not understand what they are told or what they should do.
--- NOTE | 2021-02-21 19:33 | PC.NURSE ---
Pt states she felt wetness at approx 1430 today and has cont. to feel wet all day. Pt denies bleeding. Pt feeling movements
== END 2021-02-21 21:39 | disposition home or self-care (01) ==
LOC: ANHOBOP 19:13
PROVIDERS: PCP Family Medicine; Visit Provider Obstetrics & Gynecology Gynecology
DX: O26.93 Pregnancy related conditions, unspecified, third trimester (principal); O41.93X0 Disorder of amniotic fluid and membranes, unspecified, third trimester, not applicable or unspecified; Z3A.33 33 weeks gestation of pregnancy
CPT/HCPCS: 59025; 84112

== ENCOUNTER 2021-03-04 10:45 | Outpatient (CLI) | payer BC, SELFPAY ==
--- NOTE | ~2021-03-04 | US_ITS ---
EXAMINATION: US OB follow up EXAM DATE: 03/04/2021 11:11 INDICATION: Size greater than dates. For growth. 3rd trimester. TECHNIQUE: Pelvic obstetrical transabdominal sonogram was performed by a technologist. There are mu ltiple grayscale and Doppler images available for interpretation. Comparison is made to prior examina tion from 12/23/2020. FINDINGS: There is a single fetus identified in vertex presentation with a heart rate of 149 beats pe r minute. The placenta is located in the posterior fundal position. There is no sonographic evidence of retroplacental hemorrhage identified. The amniotic fluid index is 9.8 centimeters, which is rocio l. The 5th -- 95th percentile range is 7.9-24.9. BIOMETRIC DATA: Biparietal diameter (BPD): 9.4 cm ----------------> 38 weeks 3 days. Head circumference (HC): 32.4 cm ----------------> 36 weeks 5 days. Abdominal circumference (AC): 34.5 cm ----------> 38 weeks 3 days. Femur length (FL): 7.1 cm --------------------------> 36 weeks 1 day. These measurements are concordant. HC/AC ratio is 0.94 (The 5th -- 95th percentile range is 0.91-1.05. Estimated weight is 3279 g +/- 492 g. This is the 96.7th percentile when the currently reporte d clinical gestation age 35 weeks 2 days, clinical estimated date of delivery (STEVEN-OPE) 04/06/2021 is u sed. estimated gestational age based on measurements from this exam is 37 weeks 3 days, with an estimated date of delivery (STEVEN-AUA) 03/22. IMPRESSION: 1. Single fetus in vertex presentation with heart rate 149 beats per minute. 2. Estimated weight of 3279 grams, 96.7th percentile using STEVEN(OPE) 04/06, up from 59th percenti le on prior exam. 3. Normal SUE 9.8 cm. Reviewed, dictated and finalized at location A. IMPRESSION: 1. Single fetus in vertex presentation with heart rate 149 beats per minute. 2. Estimated weight of 3279 grams, 96.7th percentile using STEVEN(OPE) 04/06, up from 59th percentile on prior exam. 3. Normal SUE 9.8 cm.
== END 2021-03-04 10:46 | disposition home or self-care (01) ==
PROVIDERS: PCP Family Medicine; Visit Provider Obstetrics & Gynecology Gynecology
DX: O36.63X0 Maternal care for excessive fetal growth, third trimester, not applicable or unspecified (principal); Z3A.37 37 weeks gestation of pregnancy
CPT/HCPCS: 76816

== ENCOUNTER 2021-03-06 10:44 | Outpatient (CLI) | payer BC, SELFPAY ==
[2021-03-06 11:21] LABS: Basophils Absolute Auto 0.1 K/mm3 (0.0-0.1); Basophils Percent Auto 0.4 % (0.2-1.2); Eosinophils Percent Auto 0.3 % (0-4.4); Hematocrit 30.5 % (37.0-47.0); Hemoglobin 10.1 g/dL (12.0-15.0); Immature Granulocyte Absolute 0.59 K/mm3 (0.00-0.031); Immature Granulocyte Percent A 5.1 % (0-0.5); Lymphocytes Absolute Auto 1.56 K/mm3 (0.9-3.2); Lymphocytes Percent Auto 13.4 % (18.3-44.2); Mean Corpuscular HGB Conc 33.1 g/dl (32-36); Mean Corpuscular Hemoglobin 28.6 pg (26-34); Mean Corpuscular Volume 86.4 fl (80-100); Mean Platelet Volume 10.5 fl (7.4-10.4); Monocytes Absolute Auto 0.9 K/mm3 (0.1-0.6); Monocytes Percent Auto 7.3 % (2.6-8.5); Neutrophils Absolute Auto 8.5 K/mm3 (1.3-6.7); Neutrophils Percent Auto 73.5 % (45.5-73.1); Platelet Count Result 174 k/mm3 (150-375); Red Blood Count 3.53 M/mm3 (4.2-5.4); Red Cell Distribution Width 14.3 % (11.5-14.5); White Blood Count 11.6 K/mm3 (4.5-10.0)
[2021-03-06 11:33] LABS: Alanine Aminotransferase 10 U/L (4-35); Albumin Level 3.4 g/dL (3.5-5.1); Alkaline Phosphatase 117 U/L (38-126); Anion Gap 7 mmol/L (8-16); Aspartate Amino Transferase 16 U/L (14-36); Bilirubin,Total 0.2 mg/dL (0.2-1.3); Blood Urea Nitrogen 7 mg/dL (7-17); Calcium 8.4 mg/dL (8.4-10.2); Carbon Dioxide 19 mmol/L (22-30); Chloride 109 mmol/L (98-107); Estimated Glomerular Filt Rate > 60; Glucose 140 mg/dL (65-105); Potassium 3.4 mmol/L (3.4-5.0); Sodium 135 mmol/L (137-145); Uric Acid 3.2 mg/dL (2.5-7.5)
[2021-03-06 11:40] LABS: Creatinine Urine 192.2 mg/dL; Total Protein Urine Random 7 mg/dL; Ur Ttl Prot Creatinine Ratio 0.04 mg/mg (0-0.20)
[2021-03-06 12:30] VITALS: BP 108/65; PULSE 117
--- NOTE | 2021-03-06 12:30 | PC.NURSE ---
Dr Henderson informed of adm c/o of swelling and headaches times 4 days, current BP's and lab results. OK to dc home. Instruct patient to take iron twice a day, if not already taking.
[2021-03-06 12:42] LABS: Add Urine Microscopic? YES; Appearance Urine Cloudy (Clear); Bacteria Urine Trace /hpf; Bilirubin Urine Negative (Negative); Blood Urine Negative (Negative); Color Urine Yellow (Yellow); Glucose Urine UA 2+ mg/dL (Negative); Ketones Urine Negative (Negative); Leukocyte Esterase Ur 1+ LEU/UL (NEGATIVE); Mucus Urine Heavy /lpf; Nitrate Urine Negative (Negative); Protein Urine 2+ mg/dL (Negative); Specific Grav Ur 1.029 (1.001-1.035); Squamous Epithelial Cell Urine Many /hpf (Few); Urobilinogen Urine Negative mg/dL (<2.0); WBC Urine 0-3 /hpf (0-3)
== END 2021-03-06 12:35 | disposition home or self-care (01) ==
LOC: ANHOBOP 10:48
PROVIDERS: PCP Family Medicine; Visit Provider Obstetrics & Gynecology Gynecology
DX: R51.9 Headache, unspecified (principal); O13.9 Gestational [pregnancy-induced] hypertension without significant proteinuria, unspecified trimester; Z3A.00 Weeks of gestation of pregnancy not specified; R60.9 Edema, unspecified
CPT/HCPCS: 36415; 59025; 80053; 81001; 82570; 84156; 84550; 85025; 87086

== ENCOUNTER 2021-03-21 17:11 | Outpatient (CLI) | payer BC, SELFPAY ==
[2021-03-21 17:38] VITALS: BP 102/54; PULSE 94
[2021-03-21 17:53] VITALS: BP 102/54; PULSE 98
[2021-03-21 17:55] LABS: Basophils Absolute Auto 0.1 K/mm3 (0.0-0.1); Basophils Percent Auto 0.5 % (0.2-1.2); Eosinophils Percent Auto 0.3 % (0-4.4); Hematocrit 30.4 % (37.0-47.0); Hemoglobin 9.9 g/dL (12.0-15.0); Immature Granulocyte Absolute 0.57 K/mm3 (0.00-0.031); Immature Granulocyte Percent A 4.9 % (0-0.5); Lymphocytes Absolute Auto 2.01 K/mm3 (0.9-3.2); Lymphocytes Percent Auto 17.1 % (18.3-44.2); Mean Corpuscular HGB Conc 32.6 g/dl (32-36); Mean Corpuscular Volume 86.1 fl (80-100); Mean Platelet Volume 10.3 fl (7.4-10.4); Monocytes Absolute Auto 1.3 K/mm3 (0.1-0.6); Monocytes Percent Auto 10.7 % (2.6-8.5); Neutrophils Absolute Auto 7.8 K/mm3 (1.3-6.7); Neutrophils Percent Auto 66.5 % (45.5-73.1); Platelet Count Result 174 k/mm3 (150-375); Red Blood Count 3.53 M/mm3 (4.2-5.4); Red Cell Distribution Width 14.7 % (11.5-14.5); White Blood Count 11.8 K/mm3 (4.5-10.0)
[2021-03-21 17:56] VITALS: TEMP 36.6
[2021-03-21 18:00] LABS: Add Urine Microscopic? YES; Appearance Urine Cloudy (Clear); Bacteria Urine 1+ /hpf; Bilirubin Urine Negative (Negative); Blood Urine Negative (Negative); Color Urine Yellow (Yellow); Glucose Urine UA Negative (Negative); Ketones Urine Negative (Negative); Leukocyte Esterase Ur 3+ LEU/UL (NEGATIVE); Mucus Urine Few /lpf; Nitrate Urine Negative (Negative); Protein Urine 1+ mg/dL (Negative); RBC Urine 0-2 /hpf (0-2); Specific Grav Ur 1.021 (1.001-1.035); Squamous Epithelial Cell Urine Moderate /hpf (Few); Transitional Epi Cells Urine Rare /hpf (None Seen)
[2021-03-21 18:01] VITALS: BP 105/60; PULSE 97
[2021-03-21 18:05] LABS: Alanine Aminotransferase 12 U/L (4-35); Albumin Level 3.5 g/dL (3.5-5.1); Alkaline Phosphatase 128 U/L (38-126); Anion Gap 8 mmol/L (8-16); Aspartate Amino Transferase 19 U/L (14-36); Bilirubin,Total 0.2 mg/dL (0.2-1.3); Blood Urea Nitrogen 9 mg/dL (7-17); Calcium 8.3 mg/dL (8.4-10.2); Carbon Dioxide 20 mmol/L (22-30); Chloride 109 mmol/L (98-107); Estimated Glomerular Filt Rate > 60; Glucose 92 mg/dL (65-105); Potassium 3.9 mmol/L (3.4-5.0); Sodium 137 mmol/L (137-145)
[2021-03-21 18:29] LABS: Creatinine Urine 116.5 mg/dL; Total Protein Urine Random 9 mg/dL; Ur Ttl Prot Creatinine Ratio 0.08 mg/mg (0-0.20)
--- NOTE | 2021-03-21 18:50 | PC.NURSE ---
Dr. Mabry paged with pt lab results. Pt reports headache that occurs with changes in her blood sugar. Blood sugar in lab work reported. Dr. Baca ordered 1 time dose of Fiorcet be given and d/c pt. Pt to follow up at her next appointment.
[2021-03-21 19:44] VITALS: BP 102/54; PULSE 98
== END 2021-03-21 19:09 ==
LOC: ANHOBOP 17:17 → ANHOBPP 17:18
PROVIDERS: Obstetrics & Gynecology; PCP Family Medicine; Visit Provider Obstetrics & Gynecology Gynecology
DX: O13.9 Gestational [pregnancy-induced] hypertension without significant proteinuria, unspecified trimester (principal); Z3A.00 Weeks of gestation of pregnancy not specified
CPT/HCPCS: 36415; 59025; 80053; 81001; 82570; 84156; 84550; 85025; 87086; 99199; A9270

== ENCOUNTER 2021-03-25 09:05 | Outpatient (RCR) | payer BC, SELFPAY ==
[2021-03-25 09:42] VITALS: BP 106/59
== END 2021-03-31 12:24 | disposition home or self-care (01) ==
LOC: ANHOBOP 09:05
PROVIDERS: PCP Family Medicine; Visit Provider Obstetrics & Gynecology Gynecology
DX: O24.419 Gestational diabetes mellitus in pregnancy, unspecified control (principal); Z3A.36 36 weeks gestation of pregnancy; Z3A.38 38 weeks gestation of pregnancy
CPT/HCPCS: 59025

== ENCOUNTER 2021-03-30 05:49 | Inpatient (IN) | payer BC, SELFPAY ==
[2021-03-30] VITALS (186 sets, daily range): BP systolic 45–171; BP diastolic 12–148; PULSE 55–286; RESP 16; TEMP 36.2–37.1; O2SAT 72–100; BMI 52.9
[2021-03-30 06:20] LABS: Glucose Point of Care 95 (65-105)
[2021-03-30 06:23] LABS: Basophils Percent Auto 0.4 % (0.2-1.2); Eosinophils Percent Auto 0.3 % (0-4.4); Hematocrit 31.6 % (37.0-47.0); Hemoglobin 10.1 g/dL (12.0-15.0); Immature Granulocyte Absolute 0.42 K/mm3 (0.00-0.031); Immature Granulocyte Percent A 4.6 % (0-0.5); Lymphocytes Absolute Auto 1.67 K/mm3 (0.9-3.2); Lymphocytes Percent Auto 18.3 % (18.3-44.2); Mean Corpuscular Hemoglobin 27.8 pg (26-34); Mean Corpuscular Volume 87.1 fl (80-100); Mean Platelet Volume 10.1 fl (7.4-10.4); Monocytes Absolute Auto 0.9 K/mm3 (0.1-0.6); Monocytes Percent Auto 9.9 % (2.6-8.5); Neutrophils Absolute Auto 6.1 K/mm3 (1.3-6.7); Neutrophils Percent Auto 66.5 % (45.5-73.1); Platelet Count Result 164 k/mm3 (150-375); Red Blood Count 3.63 M/mm3 (4.2-5.4); Red Cell Distribution Width 15.1 % (11.5-14.5); White Blood Count 9.1 K/mm3 (4.5-10.0)
[2021-03-30] MEDS: OXYTOCIN 30 UNITS/NS 500 ML 30 UNITS/500 ML BAG IV CONT (06:33)
[2021-03-30] MEDS: LACTATED RINGERS 1,000 ML 125 ML IV CONT ×3 (06:33→13:01)
--- NOTE | 2021-03-30 06:45 | LDADM ---
This patient, Stacey Lin, was admitted to Labor/Delivery/Recovery 103 on 03/30/21 at 05:49. Plans for labor, pain management and were discussed with patient. Patient/family oriented to hospital policies and general routines including ID bracelet, bed and alarms, visiting hours, pain management, procedures, bathroom and other care routines, personal items, smoking policy, room service/diet and guest tray routines, security routines, and visiting hours. Patient/Family are encouraged to report perceived risks to care and to ask questions if they do not understand what they are told or what they should do. See OBIX for further documentation.
--- NOTE | 2021-03-30 07:25 | WPDANESEPP ---
Anes - Eval Pre Procedure Procedure: Labor Epidural Date/Time: 03/30/21 07:25 Pre Op Diagnosis: IOL Patient Data Age: 25 Gender: F Height: 1.52 m Weight: 123 kg Last Vital Signs Pulse 93 03/30/21 07:16 BP 101/53 L 03/30/21 07:16 Allergies Allergy/AdvReac Type Severity Reaction Status Date / Time No Known Allergies Allergy Verified 06/04/20 20:26 Home Medications Medication Instructions Recorded Confirmed Type sertraline [Zoloft] 50 mg PO DAILY 10/12/19 03/30/21 History PNV cmb#95-ferrous fumarate-FA 1 tablet PO DAILY 02/01/21 03/30/21 History [] aspirin 81 mg PO DAILY 02/01/21 03/30/21 History ergocalciferol (vitamin D2) 50,000 unit PO WEEKLY 02/01/21 03/30/21 History insulin NPH isoph U-100 human 12 unit SUBCUT DAILY 03/21/21 03/21/21 History [Novolin N NPH U-100 Insulin] Laboratory Tests 03/30/21 03/30/21 06:16 06:17 WBC 9.1 K/mm3 K/mm3 (4.5-10.0) RBC 3.63 M/mm3 L M/mm3 (4.2-5.4) Hgb 10.1 g/dL L g/dL (12.0-15.0) Hct 31.6 % L % (37.0-47.0) MCV 87.1 fl fl (80-100) MCH 27.8 pg pg (26-34) MCHC 32.0 g/dl g/dl (32-36) RDW 15.1 % H % (11.5-14.5) Plt Count 164 k/mm3 k/mm3 (150-375) MPV 10.1 fl fl (7.4-10.4) Immature Gran % (Auto) 4.6 % H % (0-0.5) Neut % (Auto) 66.5 % % (45.5-73.1) Lymph % (Auto) 18.3 % % (18.3-44.2) [place] % (Auto) 9.9 % H % (2.6-8.5) Eos % (Auto) 0.3 % % (0-4.4) Baso % (Auto) 0.4 % % (0.2-1.2) Lymph # (Auto) 1.67 K/mm3 K/mm3 (0.9-3.2) [place] # (Auto) 0.9 K/mm3 H K/mm3 (0.1-0.6) Eos # (Auto) 0.0 K/mm3 K/mm3 (0-0.3) Baso # (Auto) 0.0 K/mm3 K/mm3 (0.0-0.1) Abs Immat Gran (auto) 0.42 K/mm3 H K/mm3 (0.00-0.031) Absolute Neuts (auto) 6.1 K/mm3 K/mm3 (1.3-6.7) Absolute Nucleated RBC 0.0 K/mm3 K/mm3 (0.0-0.012) Nucleated RBC % 0.0 % % (0.0-0.2) POC Capillary Glucose 95 mg/dl mg/dl (65-105) Patient hx anesthesia problems: none Family hx anesthesia problems: none PMFSH Past Medical History Medical History Depression Headache Morbid obesity with BMI of 50.0-59.9, adult contractions Family History Family History Mother Depression Family history of obesity Hypertension Social History Social History Smoking status: Never smoker Second hand tobacco smoke exposure: No Alcohol intake: never Substance use: never Gender identity (if verbalized by the patient): Female Spiritual care concerns: No Exam Day of Procedure 03/30/21 07:25 Patient weight: super morbidly obese Heart: regular rate and rhythm Lungs: normal air movement Airway: Mallampati scale class III Neurological: alert and oriented
[2021-03-30 09:53] LABS: Glucose Point of Care 69 (65-105)
--- NOTE | 2021-03-30 09:58 | WPDOBADMIT ---
Obstetrics - Admit Note Admission Note: AROM clear fluid 3/-2 vertex record reviewed. No pertinent additions to the history and/or any subsequent changes in the physical findings that are not consistent with the expected course of the were found. Additions to the history and/or subsequent changes in the physical findings follow. None.
[2021-03-30 14:07] LABS: Glucose Point of Care 75 (65-105)
[2021-03-30 16:06] LABS: Glucose Point of Care 81 (65-105)
[2021-03-30 17:54] LABS: Glucose Point of Care 58 (65-105)
--- NOTE | 2021-03-30 18:42 | PM.OBPRVD ---
OB - Delivery Note Procedure Delivery date: 03/30/21 Procedure: events: Labor Induction Intrapartal events: None Induction method: AROM and per pitocin protocol Delivery monitor: external FHT, external uterine and internal uterine Route of delivery: Laceration Description: None Specimen: Yes Quantitative Blood Loss (ml): 75 Anesthesia type: Epidural Baby Date of : 03/30/21 Time of : 18:33 Weeks of gestation at delivery: 39 gender: Male Weight (pounds): 7 Weight (ounces): 8 presentation: vertex position: Left Occiput Anterior Placenta delivery description: Spontaneous cord vessel description: 3 Vessels score one minute: 8 score five minutes: 9
--- NOTE | 2021-03-30 18:44 | PM.OBDSVD ---
DS: Admitting Diagnosis Admitting Diagnosis Admitting Diagnosis: induction of labor DS: Discharge Diagnosis Discharge Diagnosis (1) (normal spontaneous vaginal delivery): Code(s): O80 - Encounter for full-term uncomplicated delivery Status: Acute (2) GDM, class A2: Code(s): O24.419 - Gestational diabetes mellitus in , unspecified control Status: Acute OB - DS: Summary OB Procedures : None OB Procedures Intrapartum: Spontaneous Vag Delivery OB Procedures: : None Peripartum Data Delivery Method: Natural Vaginal Laceration Description: None Time Spent with Patient Time attestation: Total time spent providing and/or coordinating discharge services: DS: Data Data Completed and Pending Labs on day of discharge: Labs from last 24 hours 03/30/21 03/30/21 03/30/21 17:52 16:04 14:01 WBC RBC Hgb Hct MCV MCH MCHC RDW Plt Count MPV Immature Gran % (Auto) Neut % (Auto) Lymph % (Auto) [place] % (Auto) Eos % (Auto) Baso % (Auto) Lymph # (Auto) [place] # (Auto) Eos # (Auto) Baso # (Auto) Abs Immat Gran (auto) Absolute Neuts (auto) Absolute Nucleated RBC Nucleated RBC % POC Capillary Glucose 58 L* 81 75 RPR Blood Type Antibody Screen 03/30/21 03/30/21 03/30/21 09:49 06:17 06:16 WBC RBC Hgb Hct MCV MCH MCHC RDW Plt Count MPV Immature Gran % (Auto) Neut % (Auto) Lymph % (Auto) [place] % (Auto) Eos % (Auto) Baso % (Auto) Lymph # (Auto) [place] # (Auto) Eos # (Auto) Baso # (Auto) Abs Immat Gran (auto) Absolute Neuts (auto) Absolute Nucleated RBC Nucleated RBC % POC Capillary Glucose 69 95 RPR Blood Type O Positive Antibody Screen Negative 03/30/21 03/30/21 06:16 06:16 WBC 9.1 RBC 3.63 L Hgb 10.1 L Hct 31.6 L MCV 87.1 MCH 27.8 MCHC 32.0 RDW 15.1 H Plt Count 164 MPV 10.1 Immature Gran % (Auto) 4.6 H Neut % (Auto) 66.5 Lymph % (Auto) 18.3 [place] % (Auto) 9.9 H Eos % (Auto) 0.3 Baso % (Auto) 0.4 Lymph # (Auto) 1.67 [place] # (Auto) 0.9 H Eos # (Auto) 0.0 Baso # (Auto) 0.0 Abs Immat Gran (auto) 0.42 H Absolute Neuts (auto) 6.1 Absolute Nucleated RBC 0.0 Nucleated RBC % 0.0 POC Capillary Glucose RPR Pending Blood Type Antibody Screen Discharge Plan Discharge Attending physician on discharge: Luis Angel Baca Discharging Clinician: Luis Angel Baca Patient Disposition: Home, Self-Care Activity: may shower and pelvic rest Diet: regular Discharge Instructions: Education: Mom and Baby Guide and Preeclampsia Handout Given to: Mother Follow-Up: Call your delivering provider's office for an appointment to be seen in: 6 Weeks Mom and baby [facility] for the follow-up appointment. Appointment Date/Time: April 02, 2021 at 9:00 am What to expect at your follow-up visit: Physical Assessment Call [phone] if you are unable to keep your appointment time. BREAST CARE: * Wear a snug supportive bra. * For engorgement discomfort: Bottle Feeding: * May apply ice packs EPISIOTOMY/PERINEAL CARE: * Until bleeding stops, use your raymond bottle after urinating * Change your pad frequently throughout the day * You may take sitz baths several times a day (fill your bathtub with warm water and soak for 20 minutes.) Do NOT bathe in the water * No tub baths until seen by your physician - You may shower ACTIVITY: * Rest as much as possible. * Do not exercise or lift anything heavier than your baby (such as laundry or other children.) * Avoid stairs or driving as much as possible. * Do not put anything into the vagina. No douching, tampons, or sexual activity until seen by physician. NOTIFY PHYSICIAN IF YOU HAVE ANY QUESTIONS OR IF ANY OF THE FO
[2021-03-30] MEDS: OXYTOCIN 30 UNITS/NS 500 ML 30 UNITS/500 ML BAG 125 UNITS IV CONT (19:08)
--- NOTE | 2021-03-30 20:10 | OBPPTRN ---
Addendum entered by Kerline Walker RN 03/30/21 23:08: Admission done 03/30/21 @ 2049 Original Note: Patient transferred to post room #285 via wheelchair. Support person present. Oriented to unit, room, information board, rooming in, admission packet and security measures. Patient verbalizes understanding. Infant with patient.
[2021-03-31 03:45] VITALS: BP 114/65; PULSE 87; RESP 16; TEMP 36.6; O2SAT 99
[2021-03-31] MEDS: IBUPROFEN 600 MG TABLET PO ×3 (03:49→23:40)
[2021-03-31 04:43] LABS: Hematocrit 30.4 % (37.0-47.0); Hemoglobin 9.6 g/dL (12.0-15.0)
--- NOTE | 2021-03-31 07:28 | PM.OBPNVD ---
OB - PN: Subj Subjective Date/time seen: 03/31/21 07:28 Doing well no complaints OB - PN: Obj Data Labs CBC & Chem 7: 03/31/21 03:46 Labs: Laboratory Results - last 24 hr 03/30/21 03/30/21 03/30/21 06:16 09:49 14:01 Hgb Hct POC Capillary Glucose 69 75 Blood Type O Positive Antibody Screen Negative 03/30/21 03/30/21 03/31/21 16:04 17:52 03:46 Hgb 9.6 L Hct 30.4 L POC Capillary Glucose 81 58 L* Blood Type Antibody Screen OB - PN A/P Assessment and Plan (1) (normal spontaneous vaginal delivery): Code(s): O80 - Encounter for full-term uncomplicated delivery Status: Acute Assessment and Plan: continue with pp care. Time Spent With Patient Time: Total time spent is greater than 50% in coordination of care (as documented) at patient's floor/unit and/or counseling patient: Exam Narrative: Exam Narrative: ff below umbilicus
[2021-03-31 07:30] VITALS: BP 104/63; PULSE 77; RESP 18; TEMP 36.4
--- NOTE | 2021-03-31 07:36 | WPDANLDPN2 ---
Anes-Prog Note L&D Date/Time: 03/31/21 07:36 Comfortable throughout: labor and delivery Neuraxial method: epidural Epidural/Spinal procedure site: clean & non-tender Neuro status: Neuro function grossly intact. Cardiovascular status: normal Respiratory status: normal Airway patency: baseline Mental status: baseline Post-Op hydration status: normal Vital Signs: Last Vital Signs Temp 36.6 C 03/31/21 03:45 Pulse 87 03/31/21 03:45 Resp 16 03/31/21 03:45 BP 114/65 03/31/21 03:45 Pulse Ox 99 03/31/21 03:45 Pain score (VAS): 0 I/O: Intake & Output 03/30/21 03/30/21 03/31/21 15:59 23:59 07:59 Intake Total 1999 Output Total 75 Balance 1999 - Post-procedural complaints: none Patient feedback: Patient satisfied with anesthetic care.
--- NOTE | 2021-03-31 08:10 | PC.NURSE ---
Mother called out for assist with feeding. Consulted with patient, mother reports has been sleepy and having difficulties getting to open for deep latch. Mother is supplementing after each /attempt. Reviewed nipple care of lanolin, warm compresses several times per day as needed. Reviewed feeding cues, frequencies, duration of feedings, feeding elimination flow sheet, and signs of adequate intake. Demonstrated stimulation techniques to wake infant for feeding. Assisted with infant to breast. Reviewed positioning/alignment in football, holding breast in C hold and guided asymmetrical latch on. was able to latch within a few attempts. Infant nursed eagerly, with steady draws and frequent swallowing noted. Reviewed signs of a correct latch, effective nursing and suck swallow ratio. was able to maintain latch. Mother reported tenderness at times, had slipped to shallow latch. Demonstrated how to adjust latch more deeply while feeding. Mother quickly reports she can feel infant is latched more deeply and has minimal tenderness. Suggested to stimulate while feeding to keep awake and nursing effectively for increased stimulation, increased intake and to assist with maintaining deep latch. Instructed mother to call out for RN assistance if she is unable to latch infant for feeding or she has discomfort with nursing.
[2021-03-31] MEDS: DOCUSATE SODIUM 100 MG CAPSULE PO ×2 (09:11→16:52)
[2021-03-31] MEDS: POLYSACCHARIDE IRON COMPLEX 150 MG CAPSULE PO ×2 (09:11→16:52)
[2021-03-31] MEDS: MULTIVIT/MIN/PREN/FOL AC/IRON TABLET 1 TAB PO (09:11)
[2021-03-31] MEDS: SERTRALINE HCL 50 MG TABLET PO (09:12)
[2021-03-31 11:30] LABS: Rapid Plasma Reagin Non-Reactive (NonReactive)
[2021-03-31 12:05] VITALS: BP 102/64; PULSE 83; RESP 16; TEMP 37.1; O2SAT 97
[2021-03-31 16:30] VITALS: BP 113/78; PULSE 78; RESP 18; TEMP 36.6; O2SAT 97
[2021-03-31 19:30] VITALS: BP 118/75; PULSE 75; RESP 18; TEMP 36.6; O2SAT 97; O2SAT 98
[2021-04-01 07:50] VITALS: BP 123/71; PULSE 72; RESP 18; TEMP 36.3; O2SAT 99
[2021-04-01] MEDS: MULTIVIT/MIN/PREN/FOL AC/IRON TABLET 1 TAB PO (08:38)
[2021-04-01] MEDS: POLYSACCHARIDE IRON COMPLEX 150 MG CAPSULE PO (08:38)
[2021-04-01] MEDS: IBUPROFEN 600 MG TABLET PO (08:38)
[2021-04-01] MEDS: SERTRALINE HCL 50 MG TABLET PO (08:38)
[2021-04-01] MEDS: DOCUSATE SODIUM 100 MG CAPSULE PO (08:38)
--- NOTE | 2021-04-01 11:50 | PC.NURSE ---
Patient instructed on viewing the discharge video Mother & Baby Care, The First Two Weeks . Patient was given the opportunity and encouraged to ask questions. Patient verbalized understanding of information shared and has been given the mother/baby guide for home reference.
[2021-04-02 09:17] VITALS: BP 122/77; PULSE 80; RESP 20; TEMP 36.8; O2SAT 100
== END 2021-04-01 12:10 | disposition home or self-care (01) | DRG 807 ==
LOC: ANHLDR 05:53 → ANHOB2 21:04
PROVIDERS: Admitting Provider Obstetrics & Gynecology; PCP Family Medicine; Visit Provider Obstetrics & Gynecology
DX: O24.429 Gestational diabetes mellitus in childbirth, unspecified control (principal); Z37.0 Single live birth; Z3A.39 39 weeks gestation of pregnancy; O36.8330 Maternal care for abnormalities of the fetal heart rate or rhythm, third trimester, not applicable or unspecified; O99.214 Obesity complicating childbirth; E66.01 Morbid (severe) obesity due to excess calories; O99.344 Other mental disorders complicating childbirth; F32.9 Major depressive disorder, single episode, unspecified; F41.9 Anxiety disorder, unspecified
CPT/HCPCS: 36415; 82948; 85014; 85018; 85025; 86592; 86850; 86900; 86901; 88307; A9270; J2590; J2795; J7120

== ENCOUNTER 2021-07-23 08:36 | Outpatient (CLI) | payer BC, SELFPAY ==
--- NOTE | ~2021-07-23 | XR_ITS ---
EXAMINATION: XR chest 2V EXAM DATE: 07/23/2021 08:54 INDICATION: R05 - Cough/COVID-19. Increasing shortness of breath. Headache. TECHNIQUE: Frontal and lateral projections of the chest obtained and reviewed. Comparison is made to prior examination from 05/20/2016. FINDINGS: The lungs are clear. There are no pleural effusions. The cardiomediastinal silhouette is within normal limits. There is no pneumothorax suspected. The bones and soft tissues are unremarkab le. IMPRESSION: No acute cardiopulmonary findings. Reviewed, dictated and finalized at location A.
== END 2021-07-23 08:37 | disposition home or self-care (01) ==
LOC: ANHIMG 08:39
PROVIDERS: PCP Family Medicine; Visit Provider Family Medicine
DX: R05 Cough (principal); U07.1 COVID-19
CPT/HCPCS: 71046

== ENCOUNTER 2021-10-07 15:23 | Outpatient (CLI) | payer BC, SELFPAY ==
[2021-10-07 16:03] LABS: Amylase 70 U/L (30-110); Lipase 88 U/L (23-300)
== END 2021-10-07 15:24 | disposition home or self-care (01) ==
LOC: ANHSURGERY 15:25
PROVIDERS: PCP Family Medicine; Visit Provider Surgery
DX: Z01.812 Encounter for preprocedural laboratory examination (principal); K80.10 Calculus of gallbladder with chronic cholecystitis without obstruction
CPT/HCPCS: 36415; 82150; 83690; 86850; 86900; 86901

== ENCOUNTER 2021-10-09 01:28 | Day surgery (SDC) | payer BC, SELFPAY ==
[2021-10-06 10:23] VITALS: BMI 51.3
--- NOTE | 2021-10-06 10:33 | PC.NURSE ---
Report to the Outpatient Waiting Room, entrance under the green pavilion located off [facility], at time 12:30 on date 10/09/21. OR Time: 2:30. - You and your visitor will be asked a series of questions to screen for COVID 19 for your protection. - A mask is required within the hospital. - Only one visitor is allowed at this time. Patient visitors will be guided where to wait when not with patient. Preoperative COVID Testing Requirements: No COVID Test needed if: (proof is required; if not received patient will have Rapid Test prior to entry) - Patient has received COVID Vaccine at least 14 days prior to procedure date or - Patient has positive COVID test result within last 90 days of surgery date. COVID Test needed if above criteria is not met If not COVID vaccinated a COVID test must be conducted within 72 hours of surgery and patient is asked to isolate self from time of testing until procedure. You will go to the [facility] for your COVID testing. The [facility] is located at the corner of [address] [facility]. You will only be called if COVID results are positive and your surgeon may reschedule your elective surgery date. Patients may have clear liquids (water, carbonated beverages, clear teas, apple juice) until 3 hours prior to surgery with a maximum of 20 ounces. - No food from midnight until time of surgery - Infants may have breast milk until 4 hours before surgery, infant formula 6 hours prior to surgery. - Children will be allowed to drink immediately following surgery. If applicable, please bring a bottle or sippy cup to assist with drinking. Juice, water, soda, and popsicles are readily available. For infants on formula, please bring formula the day of surgery. Pacifiers are allowed. Take the following medications with a SIP of water the morning of surgery: ESCITALOPRAM Medications to discontinue per physician: N/A Date to take last dose: N/A Please no make-up, nail syriac, hairspray, perfume, deodorant, or body powder the day of surgery. No jewelry (including any body piercings) or valuables the day of surgery, leave them at home. Please take a shower or bath the night before, or the morning of, surgery with an antibacterial soap. Wear comfortable, loose fitting clothing. Children are encouraged to wear pajamas. HIBICLENS SHOWER - Jewelry must be removed prior to entering the operating room. Rings and piercings that are not removed may be cut off. - The hospital will not accept responsibility for valuables. - Please leave all valuables, including medications, at home the day of surgery. If you are going home after surgery, a licensed river driver must drive you home. - NO public transportation without another adult. - We recommend that an adult stay with you for 24 hours following discharge. - We also recommend that you do not drive, make important decision, drink alcoholic beverages, or take any drugs that were not prescribed by your health care provider for at least 24 hours after your discharge time. For Pediatric surgeries, we recommend two adults accompany the child home (only one inside the building at this time). Follow any additional instructions given to you from your surgeon. Telephone instructions given to JOHN YEBOAH and asked if any additional questions and then verbalized understanding. Patient advised to call surgeon office or pre surgery nurse liaison [phone] if any additional questions.
[2021-10-09] VITALS (9 sets, daily range): BP systolic 116–155; BP diastolic 71–86; PULSE 60–80; RESP 12–21; TEMP 36.4; O2SAT 97–100; BMI 51.8
--- NOTE | 2021-10-09 13:19 | WPDHPUPDATE1 ---
History and Physical Update Update Date/Time: 10/09/21 13:19 History and Physical has been reviewed, including an updated exam of the patient. There are NO changes in the patient's condition. Risks, benefits, and alternatives have been discussed and questions answered. Patient agrees to proceed with procedure.
--- NOTE | 2021-10-09 13:32 | WPDANESEPPF ---
Anes - Initial Pre Proc Eval Procedure: Operation Date: 10/09/21 14:30 Proposed Procedures p Laparoscopic Cholecystectomy - Alysha Pat MD Date/Time: 10/09/21 13:32 Surgeon: Alysha Pat MD Pre Op Diagnosis: chronic cholecystitis with stones Patient Data Age: 25 Gender: F Height: 1.52 m Weight: 119.29 kg Allergies Allergy/AdvReac Type Severity Reaction Status Date / Time No Known Allergies Allergy Verified 10/06/21 10:22 Home Medications Medication Instructions Recorded Confirmed Type escitalopram oxalate 10 mg tablet 10 mg PO DAILY 09/29/21 10/06/21 History Patient hx anesthesia problems: none Family hx anesthesia problems: none Results Review: All pre-operative results and documents have been reviewed as part of the pre-operative evaluation. 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 Gender identity (if verbalized by the patient): Female Sexual Orientation (if Verbalized by the Patient): Straight or Heterosexual Spiritual care concerns: No Anes - Eval Final PreProcedure Day of Procedure 10/09/21 13:32 Patient weight: morbidly obese Heart: regular rate and rhythm Lungs: clear to auscultation Airway: Mallampati scale class II Neurological: alert and oriented Last oral intake: >/= 8 hours ASA classification: III Emergent: no Anesthetic plan: proceed Anesthesia type and monitoring: general ETT and standard monitoring Results Review: All pre-operative results and documents have been reviewed as part of the pre-operative evaluation. Informed Consent: The patient's anesthetic plan and its attendant risks and benefits were discussed with the patient/family/POA. Questions were solicited and answers provided to the satisfaction of the patient/family/POA.
[2021-10-09] MEDS: KETOROLAC 15 MG/ML VIAL (*BKC) IV PUSH (13:37)
[2021-10-09] MEDS: LACTATED RINGERS 1,000 ML 30 ML IV CONT ×2 (13:37→16:23)
[2021-10-09] MEDS: ACETAMINOPHEN 500 MG TABLET 1000 MG PO (13:37)
[2021-10-09] MEDS: ceFAZolin 3 GM/D5W 100 ML 100 ML IVPB (14:38)
--- NOTE | 2021-10-09 15:27 | P.OP_ITS ---
Procedure Note - Detailed Date of Procedure 10/09/21 Pre-op Diagnosis chronic cholecystitis with stones Post-op Diagnosis same Procedure Performed Laparoscopic cholecystectomy Surgeon Alysha Pat MD Anesthesia general Indications 25-year-old female with chronic cholecystitis, cholelithiasis Findings chronic cholecystitis, cholelithiasis Description of Procedure The patient was taken to the operating room placed in the supine position. After adequate induction of general anesthesia, the patient was prepped and draped in normal sterile fashion. A time-out was then performed to verify the patient's identity as well as the procedure being performed. I then made a 5 mm incision in the infraumbilical region. Through this, a Veress needle was placed into the peritoneal cavity and CO2 gas was then insufflated. After adequate pneumoperitoneum was achieved, the Veress needle was removed and a 5 mm optiview trocar was placed through this incision under direct visualization. I then placed the laparoscope through this trocar site and under direct visualization placed a further 12 mm subxiphoid port as well as 2 additional 5 mm ports in the right upper abdomen. The gallbladder was then identified and was noted to be moderately inflamed, distended, and full of gallstones. I was able to place a grasper at the dome of the gallbladder and this was retracted anterior and cephalad up over the liver. A 2nd retractor was then placed at the infundibulum and retracted laterally, this allowed visualization of the triangle of Calot. I then was able to visualize the cystic duct in its entirety from its proximal insertion into the gallbladder, to its distal junction with the common hepatic/common bile duct junction. At this point, I carefully skeletonized the proximal cystic duct with the [place] dissector. I then clipped and transected the proximal cystic duct. Next I visualized the cystic artery. Again the artery was skeletonized, clipped, and transected. I then used the Bovie cautery to take down the peritoneal attachments of the gallbladder off the liver bed. This was somewhat difficult given the amount of inflammation in the posterior space. Once the gallbladder specimen was completely detached, an endo-pouch was placed through the 12 mm port site. I then placed the gallbladder specimen into the Endo pouch and removed the endo-pouch from the 12 mm port site. The spec imen will now be sent to pathology for further review. I then copiously irrigated the right upper quadrant. Some mild oozing was noted in the liver bed and this was controlled with the bovie cautery. Hemostasis was noted in the liver bed, the clips were noted to be in good position on both the cystic duct stump and the cystic artery stump. No other pathology was noted in the right upper quadrant. I then moved the laparoscope to the subxiphoid port. No iatrogenic injury or other pathology was noted in the lower abdomen. I then closed the 12 mm trocar site under direct visualization using the Nick cone and 0 Vicryl suture. At this point, the abdomen was desufflated and all ports removed. All port sites were then closed with 4.O Monocryl subcuticular sutures. Dermabond was placed on each incision. The patient tolerated the procedure well, was extubated in the operating room postoperative and will be transferred to the recovery room in stable condition Estimated Blood Loss 10 Drains No Packing No Pathology yes Complications No immediate complications Condition stable Disposition PACU
[2021-10-09] MEDS: fentaNYL CITRATE INJ (*CRX) 100 MCG/2 ML VIAL 25 MCG IV PUSH ×5 (15:47→16:43)
--- NOTE | 2021-10-09 16:07 | SUR.PHASEI ---
Simple mask removed at 1606.
[2021-10-09] MEDS: ONDANSETRON INJ 4 MG/2 ML VIAL IV PUSH (16:40)
[2021-10-09] MEDS: oxyCODONE HCL (*CRX) 5 MG TAB IR PO (16:56)
== END 2021-10-09 17:26 | disposition home or self-care (01) ==
PROVIDERS: PCP Family Medicine; Visit Provider Surgery
PROC: 0FT44ZZ Resection of Gallbladder, Percutaneous Endoscopic Approach (ICD-10-PCS; CPT 47562; principal; 2021-10-09 14:30)
DX: K80.10 Calculus of gallbladder with chronic cholecystitis without obstruction (principal); F32.9 Major depressive disorder, single episode, unspecified; E66.01 Morbid (severe) obesity due to excess calories; Z68.43 Body mass index [BMI] 50.0-59.9, adult
CPT/HCPCS: 47562; 88304; A9270; J0330; J0690; J1100; J1885; J2250; J2405; J2704; J3010; J7030; J7120

== ENCOUNTER 2022-01-24 16:26 | Emergency (ER) | payer BC, SELFPAY ==
--- NOTE | ~2022-01-24 | XR_ITS ---
EXAMINATION: XR ankle LT min 3V DATE: 01/24/2022 16:51 INDICATION: Left ankle pain TECHNIQUE: Anteroposterior, lateral, mortise, and additional oblique view of the ankle were obtained. COMPARISON: None. FINDINGS: . There is no fracture, dislocation, or subluxation. The bones, soft tissues, and joint spa felisha are normal. IMPRESSION: 1. No acute osseous abnormality. Reviewed, dictated and finalized at location F. WRAPPER MACHINE OPERATOR
[2022-01-24 16:30] VITALS: BP 145/55; PULSE 110; RESP 16; TEMP 36.9; O2SAT 100
[2022-01-24 16:39] VITALS: BP 145/55; PULSE 110; RESP 16; TEMP 36.9; O2SAT 100
--- NOTE | 2022-01-24 17:06 | ED.LOWEXIN ---
HPI - Extremity Injury (Lower) General Chief Complaint: Extremity Injury, Lower Stated Complaint: left ankle pain Time Seen by Provider: 01/24/22 16:58 Source: patient and RN notes reviewed Mode of arrival: ambulatory Limitations: no limitations and clinical condition History of Present Illness HPI Narrative: Patient presents today complaining of left ankle injury. She tripped twice at home 2 to 3 days ago and twisted her ankle. She is complaining of lateral pain. She has been ambulatory with increased pain with weightbearing and movement. Denies numbness or tingling in the leg or foot. She currently rates her pain 2/10 and has tried no ice or medication for symptoms prior to arrival. MD complaint: ankle injury Related Data Home Medications Medication Instructions Recorded Confirmed buspirone 5 mg PO BID 01/24/22 01/24/22 hydroxyzine HCl 25 mg PO QID PRN 01/24/22 01/24/22 Allergies Allergy/AdvReac Type Severity Reaction Status Date / Time No Known Allergies Allergy Verified 01/24/22 16:37 Review of Systems Review of Systems: CONSTITUTIONAL: Denies body aches, fever, chills, or sweats. EYES: Denies visual changes, redness, or discharge. ENT: Denies rhinorrhea, congestion, sore throat, or otalgia. CARDIOVASCULAR: Denies chest pain, palpitations, or edema. RESPIRATORY: Denies cough or dyspnea. GASTROINTESTINAL: Denies abdominal pain, nausea, vomiting, or diarrhea. GENITOURINARY: Denies dysuria or hematuria. SKIN: Denies rash, itching, or wounds. MUSCULOSKELETAL: Denies back pain, or myalgia.+ Left ankle injury NEUROLOGIC: Denies headache, numbness, tingling, or weakness. PSYCH: Denies depression or anxiety. [facility] Past Medical History Medical History COVID-19 Depression GDM, class A2 Headache Morbid obesity with BMI of 50.0-59.9, adult contractions Surgical History Surgical History History of ankle surgery Hx laparoscopic cholecystectomy 10/09/21 Family History Family History Mother Depression Family history of obesity Hypertension Social History Social History Social History: Smoking status: Never smoker Second hand tobacco smoke exposure: No Alcohol intake: never Substance use: never Substance use type: does not use Additional occupation/education comments: [employer] Gender identity (if verbalized by the patient): Female Sexual Orientation (if Verbalized by the Patient): Straight or Heterosexual Spiritual care concerns: No Comments At time of signature, I have reviewed and agree with nursing past medical, surgical, social and family history unless otherwise noted. Please see nursing chart for further information. There is no relevant family history pertinent to the presenting complaint Exam Narrative: GENERAL: Well-appearing, well-nourished, and in no acute distress. HEAD: Normocephalic, atraumatic. EYES: EOMI. No redness or drainage. Conjunctivae normal. ENT: Mucous membranes pink and moist. NECK: Normal AROM. CHEST: No respiratory distress. EXTREMITIES: Left ankle: No tenderness to the medial malleolus. Mild tenderness to the lateral malleolus. More tenderness to the soft tissue just anterior to the lateral malleolus with mild edema to this area. Distal sensation intact. Capillary refill normal. Pedal pulse normal. Pain with AROM. SKIN: Warm, dry, no rash. Capillary refill normal. Normal skin turgor. NEURO: No focal deficits. Alert and oriented x3. Gait steady. PSYCH: Normal affect. No signs of depression or anxiety. Course Course Level of Care: Express Care Visit Vital Signs Vital signs: Vital Signs Temperature 98.4 F 01/24/22 16:30 Pulse Rate 110 H 01/24/22 16:30 Respir
== END 2022-01-24 17:16 | disposition home or self-care (01) ==
PROVIDERS: Emergency Provider Nurse Practitioner; PCP Family Medicine
DX: S93.402A Sprain of unspecified ligament of left ankle, initial encounter (principal); X50.9XXA Other and unspecified overexertion or strenuous movements or postures, initial encounter; Z86.16 Personal history of COVID-19; F32.A Depression, unspecified; E66.01 Morbid (severe) obesity due to excess calories; Z68.43 Body mass index [BMI] 50.0-59.9, adult
CPT/HCPCS: 73610; 99213; G0463

== ENCOUNTER 2022-02-15 08:13 | Emergency (ER) | payer BC, SELFPAY ==
[2022-02-15 08:16] VITALS: BP 126/83; PULSE 99; RESP 16; TEMP 36.2; O2SAT 100
--- NOTE | 2022-02-15 08:24 | ED.GENADULT ---
HPI - General Adult General Chief complaint: Upper Respiratory Infection Stated complaint: sore throat with jaw pain Source: patient Mode of arrival: ambulatory Limitations: no limitations History of Present Illness HPI narrative: Pt presents for evaluation and treatment of sore throat for the last week intermittently. No fever, chills, nausea, vomiting, diarrhea, cough, shortness of breath, otalgia. Her sons both have a cough at the present time. She had Covid in 2020. She has received her COVID vaccination and flu vaccination this year. She does not smoke. LMP yesterday. No additional complaints or concerns. Related Data Home Medications Medication Instructions Recorded Confirmed hydroxyzine HCl 25 mg PO QID PRN 01/24/22 02/15/22 venlafaxine 75 mg PO DAILY 02/15/22 02/15/22 Allergies Allergy/AdvReac Type Severity Reaction Status Date / Time No Known Allergies Allergy Verified 01/24/22 16:37 Review of Systems Review of Systems: CONSTITUTIONAL: Denies fever, chills, or sweats. EYES: Denies visual changes, redness, or discharge. ENT: Reports sore throat. Denies rhinorrhea, congestion, or otalgia. CARDIOVASCULAR: Denies chest pain, palpitations, or edema. RESPIRATORY: Denies cough or dyspnea. GASTROINTESTINAL: Denies abdominal pain, nausea, vomiting, or diarrhea. GENITOURINARY: Denies dysuria or hematuria. SKIN: Denies rash or itching. MUSCULOSKELETAL: Denies back pain, joint pain, or myalgia. NEUROLOGIC: Denies headache, numbness, dizziness, or weakness. PSYCHIATRIC: Denies anxiety or depression. 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 HEAD: Normocephalic, atraumatic. EYES: PERRLA and EOMI. ENT: Nares clear, no rhinorrhea or epistaxis. Mucous membranes moist. Oropharynx without tonsillar hypertrophy exudate or other lesions. There is posterior pharyngeal erythema. Bilateral TMs pearly vergara nonbulging NECK: Supple. No adenopathy or masses. No carotid bruits or JVD CHEST: Clear to auscultation. No respiratory distress. No wheezes rales or rhonchi HEART: Regular rate and rhythm. No murmur heard. Normal peripheral pulses. ABDOMEN: Soft, nontender, nondistended, normal active bowel sounds. EXTREMITIES: Normal range of motion. No edema. SKIN: Warm, dry, no rash. NEURO: No focal deficits. Alert and oriented x3. PSYCH: Normal mood and affect. Course Course Emergency Course: This is a 26-year-old female presented with a sore throat for 1 week. Strep was negative. She has no abdominal pain, fatigue or posterior cervical lymphadenopathy to suggest mono. She has no other sick symptoms warranting additional testing. We will treat her with amoxicillin and have her follow up outpatient for further evaluation and treatment. She should return for worsening symptoms. Pt in agreement with plan of care Level of Care: Express Care Visit Vital Signs Vital
== END 2022-02-15 08:34 | disposition home or self-care (01) ==
PROVIDERS: Emergency Provider Nurse Practitioner; PCP Family Medicine
DX: J02.9 Acute pharyngitis, unspecified (principal); F32.A Depression, unspecified; Z86.16 Personal history of COVID-19; E66.01 Morbid (severe) obesity due to excess calories; Z68.41 Body mass index [BMI] 40.0-44.9, adult
CPT/HCPCS: 87081; 87880; 99213; G0463

== ENCOUNTER 2022-10-27 10:40 | Outpatient (CLI) | payer BC, SELFPAY ==
--- NOTE | ~2022-10-27 | US_ITS ---
EXAMINATION: US pelvic complete w TV DATE: 10/27/2022 11:25 INDICATION: Excessive frequent menstruation Comparison:No prior studies for comparison. TECHNIQUE: Multiple transabdominal and endovaginal sonographic images of the pelvis performed. FINDINGS: The uterus measures 11 x 4.2 x 5.3 cm. There is complex fluid in the cervix. The endometria l complex measures 8 mm. The right ovary measures 4.5 x 3.2 x 3.5 cm and the left ovary measures 3 x 1.4 x 2.4 cm. There is a simple cyst of the right ovary measuring 3.5 x 2.3 x 2.2 cm There are small follicles in each ovary. Normal doppler signal in both ovaries. There is no free fluid in the pelvis. There are no abnormal masses seen on either side. IMPRESSION: 1. Thickened heterogeneous cervix containing fluid. Recommend clinical correlation. 2: Simple cyst of the right ovary measuring 3.5 cm. Reviewed, dictated and finalized at location A. CETYLENE CUTTER IMPRESSION: 1. Thickened heterogeneous cervix containing fluid. Recommend clinical correlat ion. 2: Simple cyst of the right ovary measuring 3.5 cm.
== END 2022-10-27 10:41 | disposition home or self-care (01) ==
PROVIDERS: PCP Family Medicine; Visit Provider Nurse Practitioner
DX: N92.0 Excessive and frequent menstruation with regular cycle (principal); N83.201 Unspecified ovarian cyst, right side
CPT/HCPCS: 76830; 76856

== ENCOUNTER 2023-03-14 17:18 | Emergency (ER) | payer OTHER, SELFPAY ==
[2023-03-14 17:24] VITALS: BP 122/72; PULSE 82; RESP 14; TEMP 36.3; O2SAT 100
[2023-03-14 17:30] VITALS: BP 122/72; PULSE 82; RESP 14; TEMP 36.3; O2SAT 100
--- NOTE | 2023-03-14 17:47 | ED.GENADULT ---
HPI - General Adult General Chief complaint: Ear Stated complaint: Ear Problem Source: patient Mode of arrival: ambulatory Limitations: no limitations History of Present Illness HPI narrative: PATIENT PRESENTS FOR EVALUATION OF BILATERAL EAR PAIN FOR LAST 4 DAYS. SHE FEELS LIKE SHE HAS ?FLUID IN THE EARS? AND HAS MUFFLED HEARING BILATERALLY. NO DRAINAGE FROM THE EARS OR TINNITUS. SHE REPORTS SOME SINUS CONGESTION WITHOUT DRAINAGE. NO SORE THROAT, HEADACHE, FEVER, CHILLS, RESPIRATORY SYMPTOMS. SHE DOES NOT SMOKE. Related Data Home Medications Medication Instructions Recorded Confirmed venlafaxine 75 mg capsule,extended 150 mg PO DAILY 02/15/22 03/14/23 release 24 hr Allergies Allergy/AdvReac Type Severity Reaction Status Date / Time No Known Allergies Allergy Verified 03/14/23 17:30 Review of Systems Review of Systems: CONSTITUTIONAL: DENIES FEVER, CHILLS, OR SWEATS. EYES: DENIES VISUAL CHANGES, REDNESS, OR DISCHARGE. ENT: REPORTS BILATERAL EAR PAIN, SENSATION OF FLUID IN BOTH EARS AND MUFFLED HEARING. DENIES TINNITUS OR DRAINAGE FROM THE EARS CARDIOVASCULAR: DENIES CHEST PAIN, PALPITATIONS, OR EDEMA. RESPIRATORY: DENIES COUGH OR DYSPNEA. GASTROINTESTINAL: DENIES ABDOMINAL PAIN, NAUSEA, VOMITING, OR DIARRHEA. GENITOURINARY: DENIES DYSURIA OR HEMATURIA. SKIN: DENIES RASH OR ITCHING. MUSCULOSKELETAL: DENIES BACK PAIN, JOINT PAIN, OR MYALGIA. NEUROLOGIC: DENIES HEADACHE, NUMBNESS, DIZZINESS, OR WEAKNESS. PSYCHIATRIC: DENIES ANXIETY OR DEPRESSION. [facility] Past Medical History Medical History COVID-19 Depression GDM, class A2 Headache Morbid obesity with BMI of 50.0-59.9, adult contractions Surgical History Surgical History History of ankle surgery Hx laparoscopic cholecystectomy 10/09/21 Family History Family History Mother Depression Family history of obesity Hypertension Social History Social History Social History: Smoking status: Never smoker Second hand tobacco smoke exposure: No Alcohol intake: never Substance use: never Substance use type: does not use Living arrangements: with family Occupation/Education: occupation 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 HEAD: NORMOCEPHALIC, ATRAUMATIC. EYES: PERRLA AND EOMI. ENT: NARES CLEAR, NO RHINORRHEA OR EPISTAXIS. MUCOUS MEMBRANES MOIST. OROPHARYNX WITHOUT TONSILLAR HYPERTROPHY EXUDATE OR OTHER LESIONS. THERE IS MUCOPURULENT DISCHARGE BEHIND BOTH TYMPANIC MEMBRANES NECK: SUPPLE. NO ADENOPATHY OR MASSES. NO CAROTID BRUITS OR JVD CHEST: CLEAR TO AUSCULTATION. NO RESPIRATORY DISTRESS. NO WHEEZES RALES OR RHONCHI HEART: REGULAR RATE AND RHYTHM. NO MURMUR HEARD. NORMAL PERIPHERAL PULSES. ABDOMEN: SOFT, NONTENDER, NONDISTENDED, NORMAL ACTIVE BOWEL SOUNDS. EXTREMITIES: NORMAL RANGE OF MOTION. NO EDEMA. SKIN: WARM, DRY, NO RASH. NEURO: NO FOCAL DEFICITS. ALERT AND ORIENTED X3. PSYCH: NORMAL MOOD AND AFFECT. Course Course Emergency Course: THIS IS A 27-YEAR-OLD FEMALE WHO PRESENTED FOR EVALUATION OF BILATERAL EAR PAIN. PHYSICAL EXAM IS CONSISTENT WITH OTITIS MEDIA. WILL TREAT WITH AUGMENTIN. SUDAFED AND FLONASE MAY HELP. INCREASE HYDRATION. FOLLOW UP WITH PRIMARY PROVIDER OUTPATIENT. GO TO THE ER FOR WORSENING SYMPTOMS. PATIENT IN AGREEMENT WITH PLAN OF CARE PER Level of Care: Express Care Visit Vital Signs Vital signs: Vital Signs Temperature 36.3 C L 03/14/23 17:24 Pulse Rate 82 03/14/23 17:
== END 2023-03-14 17:48 | disposition home or self-care (01) ==
PROVIDERS: Emergency Provider Nurse Practitioner; PCP Family Medicine
DX: H66.93 Otitis media, unspecified, bilateral (principal); F32.A Depression, unspecified; E66.01 Morbid (severe) obesity due to excess calories; Z68.43 Body mass index [BMI] 50.0-59.9, adult; Z86.16 Personal history of COVID-19
CPT/HCPCS: 99213; G0463

== ENCOUNTER 2023-05-18 08:11 | Emergency (ER) | payer BC, SELFPAY ==
[2023-05-18 08:15] VITALS: BP 120/83; PULSE 88; RESP 16; TEMP 36.1; O2SAT 99
--- NOTE | 2023-05-18 08:25 | ED.EAR ---
HPI - Ear Problem General Chief complaint: Ear Stated complaint: Cough/Ear Problem Source: patient and RN notes reviewed History of Present Illness HPI Narrative: 27 yo F presents to urgent care with complaints of right-sided ear fullness. Patient states she has had head cold since this past weekend and developed the right ear fullness yesterday. Patient reports associated congestion, head pressure, and a sore throat she coughs. Patient denies any fevers, chills, ear pain chest pain, shortness of breath, vomiting, or diarrhea. Patient has been taking DayQuil and NyQuil. Some parts of this dictation were generated by voice recognition software and may contain typographical and/or grammatical inaccuracies. Related Data Home Medications Medication Instructions Recorded Confirmed venlafaxine 75 mg capsule,extended 150 mg PO DAILY 02/15/22 05/18/23 release 24 hr Allergies Allergy/AdvReac Type Severity Reaction Status Date / Time No Known Allergies Allergy Verified 05/18/23 08:19 Review of Systems Review of Systems: Pertinent positives and pertinent negatives per HPI. 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 There is no relevant family history pertinent to the patient complaint. Exam Narrative: GENERAL: This is a well-nourished, well-developed patient, in no apparent distress. HEAD: normocephalic, atraumatic. EYES: Sclera clear/white. Vision is grossly intact. EARS: External ears normal, auditory canals clear and without drainage, TMs normal without perforation. Hearing grossly intact. NOSE: External nose normal with no obvious nasal discharge, nares without redness, no rhinorrhea. THROAT: Mucous membranes moist, posterior pharynx clear. NECK: Neck supple, non-tender without lymphadenopathy, masses or thyromegaly. CARDIOVASCULAR: Regular rate and rhythm without murmurs, gallops, or rubs. RESPIRATORY: Clear to auscultation. Breath sounds equal bilaterally. No wheezes, rales, or rhonchi. SKIN: warm, intact with no suspicious lesions or rash, good texture and turgor. NEURO: awake, alert, and oriented to person, place and time. There were no obvious focal neurologic abnormalities. Course Course Level of Care: Express Care Visit Vital Signs Vital signs: Vital Signs Temperature 97.0 F L 05/18/23 08:15 Pulse Rate 88 05/18/23 08:15 Respiratory Rate 16 05/18/23 08:15 Blood Pressure 120/83 05/18/23 08:15 Pulse Oximetry 99 05/18/23 08:15 Oxygen Delivery Room Air 05/18/23 08:15 Temperature 97.0 F L 05/18/23 08:15 Pulse Rate 88 05/18/23 08:15 Respiratory Rate 16 05/18/23 08:15 Blood Pressure 120/83 05/18/23 08:15 Pulse Oximetry 99 05/18/23 08:15 Oxygen Delivery Room Air 05/18/23 08:15 reviewed Medical Decis
== END 2023-05-18 08:31 | disposition home or self-care (01) ==
PROVIDERS: Emergency Provider Nurse Practitioner Family; PCP Family Medicine
DX: J06.9 Acute upper respiratory infection, unspecified (principal); F32.A Depression, unspecified; E66.01 Morbid (severe) obesity due to excess calories; Z68.43 Body mass index [BMI] 50.0-59.9, adult; Z86.16 Personal history of COVID-19
CPT/HCPCS: 99213; G0463

== ENCOUNTER 2023-08-25 00:41 | Day surgery (SDC) | payer BC, SELFPAY ==
[2023-08-18 11:22] VITALS: BMI 46.0
--- NOTE | 2023-08-18 11:26 | PC.NURSE ---
Report to the Outpatient Waiting Room, entrance under the green pavilion located off [facility], at time 0700 on date 08/25/23. Planned Procedure Time: 0900. Time changes happen often and if your time is changed the preop area will call you the afternoon before. - You and your visitor will be asked to self-screen and do not enter if you have any COVID symptoms. - A mask is optional within the hospital at this time. Patients may have clear liquids (water, carbonated beverages, clear teas, apple juice) until 3 hours prior to surgery with a maximum of 20 ounces. - No food from midnight until time of surgery Take the following medications with a SIP of water the morning of surgery: NONE DO NOT STOP ANY OF YOUR OTHER PRESCRIPTION MEDICATIONS PRIOR TO SURGERY ?EXCEPT THE FOLLOWING Medications to discontinue per physician: N/A Date to take last dose: N/A Please no make-up, nail english, hairspray, perfume, deodorant, or body powder the day of surgery. No jewelry (including any body piercings) or valuables the day of surgery, leave them at home. Please take a shower or bath the night before, or the morning of, surgery with an antibacterial soap. Wear comfortable, loose fitting clothing. - Jewelry must be removed prior to entering the operating room. Rings and piercings that are not removed may be cut off. - The hospital will not accept responsibility for valuables. - Please leave all valuables, including medications, at home the day of surgery. If you are going home after surgery, a licensed cement mixer driver must drive you home. - NO public transportation without another adult if you receive anesthesia. - We recommend that an adult stay with you for 24 hours following discharge. - We also recommend that you do not drive, make important decision, drink alcoholic beverages, or take any drugs that were not prescribed by your health care provider for at least 24 hours after your discharge time. Follow any additional instructions given to you from your surgeon. If you or anyone in your household have experienced Covid symptoms in the past week, please notify your surgeon or the nurse liaison at the phone number below for possible testing. Telephone instructions given to PT - JOHN YEBOAH and asked if any additional questions and then verbalized understanding. Patient advised to call surgeon office or pre surgery nurse liaison [phone] if any additional questions.
--- NOTE | 2023-08-25 07:19 | WPDHPUPDATE1 ---
History and Physical Update Update Date/Time: 08/25/23 07:19 History and Physical has been reviewed, including an updated exam of the patient. There are NO changes in the patient's condition. Risks, benefits, and alternatives have been discussed and questions answered. Patient agrees to proceed with procedure.
[2023-08-25 07:23] VITALS: BP 118/80; PULSE 92; RESP 20; TEMP 36.2; O2SAT 98
[2023-08-25] MEDS: LACTATED RINGERS 1,000 ML 150 ML IV CONT (07:30)
--- NOTE | 2023-08-25 08:19 | P.PNAN_ITS ---
Anes - Initial Pre Proc Eval Procedure: Operation Date: 08/25/23 09:00 Proposed Procedures p Right Open Carpal Tunnel Release - Bert Rios MD Date/Time: 08/25/23 08:19 Surgeon: Bert Rios MD Pre Op Diagnosis: Right Carpal Tunnel Syn Patient Data Age: 27 Gender: F Height: 1.55 m Weight: 110.7 kg Last Vital Signs Temp 97.1 F L 08/25/23 07:23 Pulse 92 08/25/23 07:23 Resp 20 08/25/23 07:23 BP 118/80 08/25/23 07:23 Pulse Ox 98 08/25/23 07:23 O2 Del Method Room Air 08/25/23 07:23 Allergies Allergy/AdvReac Type Severity Reaction Status Date / Time No Known Allergies Allergy Verified 08/25/23 07:20 Home Medications Medication Instructions Recorded Confirmed Type omeprazole 20 mg capsule,delayed 20 mg PO DAILY 08/18/23 08/18/23 History release venlafaxine 150 mg 150 mg PO HS 08/18/23 08/18/23 History capsule,extended release 24 hr Patient hx anesthesia problems: none Family hx anesthesia problems: none Results Review: All pre-operative results and documents have been reviewed as part of the pre- operative evaluation. [facility] Past Medical History Medical History COVID-19 Depression GDM, class A2 Headache Morbid obesity with BMI of 50.0-59.9, adult contractions Surgical History Surgical History History of ankle surgery Hx laparoscopic cholecystectomy 10/09/21 Family History Family History Mother Depression Family history of obesity Hypertension Social History Social History Social History: Smoking status: Never smoker Second hand tobacco smoke exposure: No Alcohol intake: never Substance use: never Substance use type: does not use Living arrangements: with family Occupation/Education: occupation 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 Gender identity (if verbalized by the patient): Female Sexual Orientation (if Verbalized by the Patient): Straight or Heterosexual Spiritual care concerns: No Anes - Eval Final PreProcedure Day of Procedure 08/25/23 08:19 Patient weight: morbidly obese Heart: regular rate and rhythm Lungs: clear to auscultation Airway: Mallampati scale class II Neurological: alert and oriented Last oral intake: >/= 8 hours ASA classification: III Emergent: no Anesthetic plan: proceed Anesthesia type and monitoring: general GIVS and standard monitoring Results Review: All pre-operative results and documents have been reviewed as part of the pre- operative evaluation. Informed Consent: The patient's anesthetic plan and its attendant risks and benefits were discussed with the patient/family/POA. Questions were solicited and answers provided to the satisfaction of the patient/family/POA.
[2023-08-25] MEDS: LIDO 1%/EPINEPHRINE 1:100,000 20 ML VIAL 4 ML INFILTRATE (08:52)
[2023-08-25 09:23] VITALS: BP 117/75; PULSE 79; RESP 16; O2SAT 100
[2023-08-25] MEDS: BACITRACIN OINTMENT 15 GM TUBE 1 APPLIC TOPICAL (09:26)
--- NOTE | 2023-08-25 09:28 | P.OP_ITS ---
Procedure Note - Detailed Date of Procedure 08/25/23 Pre-op Diagnosis Right Carpal Tunnel Syn Post-op Diagnosis Same Procedure Performed Right open carpal tunnel release Surgeon Bert Rios MD Anesthesia MAC Description of Procedure The right carpal tunnel region was marked on the patient with her consent in the holding area. She was taken to the operating room placed supine on the operating table. She was given IV sedation. The extremity was prepped and draped in usual fashion. The site was marked for the incision and locally infiltrated with 1% lidocaine with epinephrine. The tourniquet was inflated to 250 mmHg. The incision was made as marked and dissection was carried bluntly through the subcutaneous tissue to the palmar aponeurosis. This and the transverse retinaculum were incised with a 15. Blade. Under 3 point retraction the ligament was divided distally and proximally to completely release it. There was no unusual anatomy noted. The skin was closed with interrupted 5 0 nylon suture. The usual bandage was applied the tourniquet was released prior to wound closure. She is discharged with instructions in wound care and follow- up and a prescription for hydrocodone 5/325 6. Estimated Blood Loss 0 Tourniquet Time 7 Drains No Packing No Pathology None sent Complications No immediate complications Condition Stable Disposition Same day
[2023-08-25 09:30] VITALS: BP 110/66; PULSE 69; RESP 17; O2SAT 98
[2023-08-25 09:45] VITALS: BP 117/76; PULSE 72; RESP 16; O2SAT 100
[2023-08-25] MEDS: oxyCODONE HCL (*CRX) 5 MG TAB IR PO (09:59)
[2023-08-25 10:00] VITALS: BP 115/71; PULSE 81; RESP 16; O2SAT 100
[2023-08-25 10:12] VITALS: BP 114/72; PULSE 75; RESP 17; O2SAT 100
== END 2023-08-25 10:17 | disposition home or self-care (01) ==
PROVIDERS: PCP Family Medicine; Visit Provider Plastic Surgery
PROC: (CPT 64721; principal; 2023-08-25 09:00)
DX: G56.01 Carpal tunnel syndrome, right upper limb (principal); F32.A Depression, unspecified; E66.01 Morbid (severe) obesity due to excess calories; Z68.42 Body mass index [BMI] 45.0-49.9, adult
CPT/HCPCS: 64721; A9270; J1100; J2250; J2405; J2704; J3010; J7120

== ENCOUNTER 2024-05-09 18:04 | Emergency (ER) | payer SELFPAY ==
[2024-05-09 18:10] VITALS: BP 104/71; PULSE 78; RESP 20; TEMP 36.7; O2SAT 100
--- NOTE | 2024-05-09 19:23 | ED.URI ---
HPI - URI/Sore Throat General Chief Complaint: Upper Respiratory Infection Stated Complaint: poss sinus infection Time Seen by Provider: 05/09/24 19:01 Source: patient, RN notes reviewed and old records reviewed Mode of arrival: ambulatory Limitations: no limitations History of Present Illness HPI Narrative: 28-year-old female to [facility] for complaint of cough, headache, sinus pressure for 1 week. Patient sources attended treat at home with DayQuil and NyQuil with mild relief. Patient denies allergies, pertinent medical history, shortness of breath, fever, ear pain. Patient able to tolerate fluids by mouth. Respirations even and nonlabored. Patient no acute distress Related Data Home Medications Medication Instructions Recorded Confirmed venlafaxine 150 mg 150 mg PO HS 08/18/23 05/09/24 capsule,extended release 24 hr Allergies Allergy/AdvReac Type Severity Reaction Status Date / Time No Known Allergies Allergy Verified 08/25/23 07:20 Review of Systems Review of Systems: All systems reviewed & are unremarkable except as noted in HPI and below Constitutional: Constitutional: Reports as per HPI and Reports headache(s) Eyes: Eyes: Reports no additional eye complaints ENT: Reports as per HPI and Reports sinus pressure Cardiovascular: Cardiovascular: Reports no additional cardiovascular complaints, Denies chest pain and Denies dyspnea Respiratory: Respiratory: Reports no additional respiratory complaints, Reports cough and Denies dyspnea Musculoskeletal: Musculoskeletal: Reports no additional musculoskeletal complaints Neurologic: Reports system reviewed and no additional complaints, except as documented Psychiatric: Psychiatric: Reports no additional psychiatric complaints PMFSH Past Medical History Medical History COVID-19 Depression GDM, class A2 Headache Morbid obesity with BMI of 50.0-59.9, adult contractions Surgical History Surgical History History of ankle surgery Hx laparoscopic cholecystectomy 10/09/21 Family History Family History Mother Depression Family history of obesity Hypertension Social History Social History Social History: Smoking status: Never smoker Second hand tobacco smoke exposure: No Alcohol intake: never Substance use: never Substance use type: does not use Living arrangements: with family Occupation/Education: occupation 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 There is no relevant family history pertinent to the patient complaint. Exam Const: General: cooperative, no acute distress, alert, ill appearing acutely, tired appearing, uncomfortable and well nourished Nutritional Appearance: well nourished Orientation/consciousness: patient oriented x3 Limitations: no limitations HENMT: Head: normal to inspection Ears: external ears normal and TM abnormal with fluid behind the TM bilateral Face/Nose/Sinus: Normal external nose present, Abnormal mucous membranes and turbinates present boggy and erythematous, normal facial exam, No erythema and No edema Face and sinus: normal facial exam, no erythema and no edema Mouth: Yes Normal oral and palatal mucosa present Throat: posterior oropharynx abnormal erythema and postnasal drainage Eyes: General: appearance normal, both eyes and all related structures Neck: Neck: normal visual inspection, full ROM and no meningeal signs Lymphati
== END 2024-05-09 19:36 | disposition home or self-care (01) ==
PROVIDERS: Emergency Provider Nurse Practitioner Family; PCP Family Medicine
DX: J32.9 Chronic sinusitis, unspecified (principal); F32.A Depression, unspecified; E66.01 Morbid (severe) obesity due to excess calories; Z68.37 Body mass index [BMI] 37.0-37.9, adult; Z86.16 Personal history of COVID-19
CPT/HCPCS: 99213; G0463

== ENCOUNTER 2025-10-01 01:26 | Day surgery (SDC) | payer SELFPAY ==
--- NOTE | 2025-09-25 14:13 | SUR.PREOP ---
[facility] has started construction of its new state of the art ER which will open Spring 2026. With this, we anticipate parking may be a challenge for some our surgical patients and families. Parking spaces are limited but are available for all Surgical, obstetrics, and ER patients sharing this lot. If you arrive and find you are having a hard time finding a parking space, please note that we understand the challenges, please drive around the hospital and park near Hospital Entrance 1. When you enter this entrance, you can ask a volunteer to direct or take you back to the surgical waiting area to check in. We appreciate everyone?s understanding of these expected challenges while we build for your future. Report to the Outpatient Waiting Room, entrance under the green pavilion located off [address], at time _830AM__ on date _10/01/25_. Planned Procedure Time: _1030__.? Time changes happen often and if your time is changed the preop area will call you the afternoon before. - You and your visitor will be asked to self-screen and do not enter if you have any COVID symptoms. Please call surgeon if you need to reschedule. - A mask is optional within the hospital at this time. Patients may have clear liquids (water, carbonated beverages, clear teas, apple juice) until 3 hours prior to surgery with a maximum of 20 ounces. - No food from midnight until time of surgery and no smoking, or chewing tobacco (or any form of nicotine). No chewing gum, candy or mints. Take only the following medications with a SIP of water on the morning of surgery: __hydroxyzine if needed___ DO NOT STOP ANY OF YOUR OTHER PRESCRIPTION MEDICATIONS PRIOR TO SURGERY EXCEPT THE FOLLOWING Hold all vitamins and supplements for 3 days per anesthesiologist. Medications to discontinue per physician __n/a___ Date to take last dose__n/a Please no make-up, nail vietnamese, hairspray, perfume, deodorant, or body powder the day of surgery.? No jewelry (including any body piercings) or valuables the day of surgery, leave them at home.? Please take a shower or bath the night before, or the morning of, surgery with an antibacterial soap.? Wear comfortable, loose fitting clothing.? - Jewelry must be removed prior to entering the operating room.? Rings and piercings that are not removed may be cut off. - The hospital will not accept responsibility for valuables.? - Please leave all valuables, including medications, at home the day of surgery. If you are going home after surgery, a licensed stacker driver must drive you home.? - NO public transportation without another adult if you receive anesthesia. - We recommend that an adult stay with you for 24 hours following discharge. - We also recommend that you do not drive, make important decision, drink alcoholic beverages, or take any drugs that were not prescribed by your health care provider for at least 24 hours after your discharge time. For Pediatric surgeries, we recommend two adults accompany the child home. Follow any additional instructions given to you from your surgeon. Telephone instructions given to __Violete___and asked if any additional questions and then verbalized understanding. Patient advised to call surgeon office or pre surgery nurse liaison [phone] if any additional questions.
[2025-09-25 14:23] VITALS: BMI 35.2
--- OUTSIDE RECORDS SUMMARY | 2025-10-01 01:30 | XMS_ITS | Clinical Summary ---
Author Organization [facility] Address [address] [place] [address] Care Team Providers Care Petroleum Production Engineer Name Role Phone Lidia Love MD Primary Care Provider + Source Comments [facility],non-owned Affiliates and Associated Physician Practices is amultiple site organization consisting of ambulatory clinics and hospital sitesin [place], [place], [place] and [place]. This disclosure is being madepursuant to the Care Everywhere program and may not contain all information available regarding this patient. Last updated 18.[facility] Allergies No known active allergies Medications * Be aware that medications may not be up to date on this document. Alwaysverify current medications with the patient. venlafaxine XR 24hr (Effexor XR) 150 MG capsule Take 1 (one) capsule by mouth at bedtime 3 Active oxyCODONE (Roxicodone) 5 MG/5ML oral solutionIndicat ions:Morbid obesity (HCC) Take 5 mL by mouth every 6 hours as needed for Pain 120 mL 3 Active Additional Information Patient not taking.Reported on 07/21/2023 acetaminophen (Tylenol) 160 MG/5ML solution Take 31.25 mL by mouth every 8 hours 3 Active ondansetron, disintegrating, (Zofran ODT) 4 MG tablet Take 1 (one) tablet by mouth every 6 hours as needed for Nausea/Vomiting Allow tablet to dissolve on the tongue 20 tablet 3 Active Additional Information Patient not taking.Reported on 07/21/2023 omeprazole (PriLOSEC) 20 MG capsule Take 1 (one) capsule by mouth once daily 30 capsule 5 3 Active Additional Information Patient not taking.Reported on 01/17/2024 Active Problems Problem Noted Date Diagnosed Date Morbid obesity 07/14/2023 Symptomatic cholelithiasis 07/29/2020 Family History Medical History Relation Name Comments Hypertension Mother Cancer - Breast Neg Hx Cancer - Colon Neg Hx Relation Name Status Comments Father Alive Mother Alive Social History Tobacco Use Types Packs/Day Years Used Date Smoking Tobacco: Never Smokeless Tobacco: Never Tobacco Cessation:Counseling Given: Not Answered Alcohol Use Standard Drinks/Week Comments Not Currently 0 (1 standard drink = 0.6 oz pur e alcohol) AUDIT-C Answer Date Recorded Q1: How often do you have a drink containing alcohol? Never 07/14/2023 Q2: How many drinks containi ng alcohol do you have on a typical day when you are drinking? Patient does not drink Q3: How often do you have si x or more drinks on one occasion? Never 07/14/2023 Overall Financial Resource Strain (CARDIA) Answe r Date Recorded How hard is it for you to pa y for the very basics like food, housing, medical care, and heating? Not hard at all 07/14/2023 [facility] - Occupational Stress Questionnaire Answer Date Recorded Do you feel stress - tense, restless, nervous, or anxious, or unable to sleep at night because your mind is troubled all the time - these days? Not at all 07/14/2023 Hunger Vital Sign Answer Date Recorded Within the past 12 months, y ou worried that your food would run out before you got the money to buy more. Never true 07/14/20 23 Within the past 12 months, t he food you bought just didn't last and you didn't have money to get more. Never true 07/14/2023 PRAPARE - Transportation Answer Date Re corded In the past 12 months, has l ack of transportation kept you from medical appointments or from getting medications? No 06/29 In the past 12 months, has l ack of transportation kept you from meetings, work, or from getting things needed for daily living? No 07/14/2023 Housing Stability Vital Sign Answer Mert e Recorded In the last 12 months, was t here a time when you were not able to pay the mortgage or rent on time? No 07/14/2023 In the last 12 months, how many places have you lived? 1 07/14/2023 In the last 12 months, was t here a time when you did not have a steady place to sleep or slept in a care home (including now)? 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 Gender Identity Not on file Sexual Orientation Not on file Last Filed Vital Signs Vital Sign Reading Time Taken Comments Blood Pressure 102/70 01/17/2024 9:47 AM WORKING FOREMAN Pulse 110 01/17/2024 9:47 AM WORKING FOREMAN Temperature 36.4 C (97.5 F) 01/17/2024 9:47 AM WORKING FOREMAN Respiratory Rate 18 07/21/2023 9:26 AM CDT Oxygen Saturation 98% 01/17/2024 9:47 AM WORKING FOREMAN Inhaled Oxygen Concentration - - Weight 90.6 kg (199 lb 12.8 oz) 01/17/2024 9:47 AM WORKING FOREMAN Height 154.9 cm (5' 1) 08/18/2023 10:4 5 AM CDT Body Mass Index 37.75 08/18/2023 10:45 AM CDT Plan of Treatment Health Maintenance Due Date Last Done Comments HIV SCREENING 2011 HEPATITIS C SCREENING 10/11/2014 DTAP/TDAP/TD VACCINES (1 - Tdap) 2015 HEPATITIS B VACCINE (1 of 3 - 19+ 3-dose series) 2015 PAP SMEAR 2017 HPV VACCINE (1 - 3-dose SCDM series) 2023 DEPRESSION SCREENING 11/29/2024 COVID-19 VACCINE (1 - 2023-2 5 season) 2025 INFLUENZA VACCINE (#1) 2025 ZOSTER VACCINE (1 of 2) 2046 HIB VACCINE Aged Out No longer eligi ble based on patient's age to complete this topic MENINGOCOCCAL (Group B) VACC INE SHARED DECISION-MAKING Aged Out No longer eligibl e based on patient's age to complete this topic MENINGOCOCCAL GROUPS A/C/Y/W VACCINE Aged Out No longer eligible b ased on patient's age to complete this topic PNEUMOCOCCAL VACCINE Aged Out No long er eligible based on patient's age to complete this topic Goals Goal Patient Goal Type Associated Problems Recent Progress Patient-Stated? Author Medication Management General Sharmila Cedillo RN Note: Expected end date: ongoing Interventions: Take all medications as prescribed Let your doctor know right away about any changes in your medications Make sure to request a refill of your medication at least one week prior to your last dose Insurance [facility] Advance Directives * Full Code (Latest Code Status on File) Date Activated Date Inactivated Comments 07/14/2023 12:33 PM 07/15/2023 3:26 PM Care Teams Petroleum Production Engineer Relationship Specialty Start Date End Date Lidia Love MD [address] [place] [address] PCP - General Family Medicine 06/14/14
--- NOTE | 2025-10-01 07:48 | P.HP_ITS ---
History of Present Illness History of Present Illness Consent: Risks, benefits, and alternatives have been discussed and questions answered. Patient agrees to proceed with procedure. Chief complaint: menorrhaghia Narrative: Stacey Lin is a 29 year old female with very heavy cycles. The patient has a pad per hour on her heavy days and clots the size of a 6. It was recommended to undergo D&C hysteroscopy for further evaluation. Pelvic ultrasound showed a slightly enlarged uterus at 11cm as well as a simple right ovarian cyst. Risks of infection, bleeding, perforation, and possible pathology are reviewed. Patient voices understanding and agrees to proceed. Review of Systems Review of Systems: not repeated day of surgery; patient states no changes in status PMFSH Past Medical History Medical History (Updated 10/01/25 @ 07:52 by Kathya Henderson MD) (normal spontaneous vaginal delivery) X2 both complicated by gestational diabetes insulin requiring Anxiety Depression Surgical History Surgical History (Updated 10/01/25 @ 07:51 by Kathya Henderson MD) History of D&C 2019 for molar Hx laparoscopic cholecystectomy 10/09/21 History of ankle surgery Family History Family History Mother Depression Family history of obesity Hypertension Social History Social History Social History: Smoking status: Never smoker Second hand tobacco smoke exposure: No Alcohol intake: never Substance use: never Substance use type: does not use Living arrangements: with family Occupation/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: occupation 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 Gender identity (if verbalized by the patient): Female Sexual Orientation (if Verbalized by the Patient): Straight or Heterosexual Spiritual care concerns: No Meds Home Medications and Allergies Home Medications ?Medication ?Instructions ?Recorded ?Confirmed ?Type venlafaxine 150 mg 150 mg PO HS 08/18/23 History capsule,extended release 24 hr hydroxyzine HCl 25 mg tablet 25 mg PO TID PRN anxiety 09/25/25 09/25/25 History Allergies Allergy/AdvReac Type Severity Reaction Status Date / Time No Known Allergies Allergy Verified 09/25/25 14:15 Exam Const: General: obese (BMI 36.9) Orientation/consciousness: patient oriented x3 Resp: Effort & Inspection: normal respiratory effort Auscultation: clear to auscultation bilaterally Cardio: Rate: regular rate Rhythm: regular rhythm GI: GI Palp: Yes Soft to palpation, No Tenderness to palpation present (GI) and No Palpable mass present : External Female Exam: normal external appearance Speculum Exam - Vagina: normal appearance of the vagina and normal vaginal discharge Speculum Exam - Cervix: normal appearance of the cervix Bimanual exam- vagina & uterus: uterine size normal and consistency normal Bimanual Exam- Adnexa, other: normal adnexae and No adnexal tenderness Neuro: General: patient oriented x3 Assessment and Plan Assessment and plan (1) Menorrhagia: Code(s): N92.0 - Excessive and frequent menstruation with regular cycle Status: Acute Assessment and Plan: Plan to proceed with D&C hysteroscopy
--- NOTE | 2025-10-01 07:48 | WPDHPUPDATE1 ---
History and Physical Update Update Date/Time: 10/01/25 07:48 History and Physical has been reviewed, including an updated exam of the patient. There are NO changes in the patient's condition. Risks, benefits, and alternatives have been discussed and questions answered. Patient agrees to proceed with procedure.
[2025-10-01 08:54] VITALS: BP 110/69; PULSE 81; RESP 16; TEMP 36.9; O2SAT 100
[2025-10-01] MEDS: ACETAMINOPHEN 500 MG TABLET 1000 MG PO (08:59)
[2025-10-01 09:41] LABS: BEDSIDEPREGUCG Negative (Negative)
--- NOTE | 2025-10-01 09:49 | WPDANESEPPF ---
Anes - Initial Pre Proc Eval Procedure: Operation Date: 10/01/25 10:30 Proposed Procedures p Hysteroscopy, Dilation and Curettage - Kathya Henderson MD Date/Time: 10/01/25 09:49 Surgeon: Kathya Henderson MD Pre Op Diagnosis: menorrhaghia Patient Data Age: 29 Gender: F Height: 1.52 m Weight: 84.75 kg Last Vital Signs Temp 36.9 C 10/01/25 08:54 Pulse 81 10/01/25 08:54 Resp 16 10/01/25 08:54 BP 110/69 10/01/25 08:54 Pulse Ox 100 10/01/25 08:54 O2 Del Method Room Air 10/01/25 08:54 Allergies Allergy/AdvReac Type Severity Reaction Status Date / Time No Known Allergies Allergy Verified 10/01/25 08:56 Home Medications ?Medication ?Instructions ?Recorded ?Confirmed ?Type venlafaxine 150 mg 150 mg PO HS 08/18/23 10/01/25 History capsule,extended release 24 hr hydroxyzine HCl 25 mg tablet 25 mg PO TID PRN anxiety 09/25/25 10/01/25 History Laboratory Tests 10/01/25 08:54 POC Urine HCG, Qual Negative (Negative) Patient hx anesthesia problems: none Family hx anesthesia problems: none Results Review: All pre-operative results and documents have been reviewed as part of the pre-operative evaluation. [facility] [place] Past Medical History Medical History (normal spontaneous vaginal delivery) X2 both complicated by gestational diabetes insulin requiring Anxiety Depression Surgical History Surgical History History of D&C 2019 for molar Hx laparoscopic cholecystectomy 10/09/21 History of ankle surgery Family History Family History Mother Depression Family history of obesity Hypertension Social History Social History Social History: Smoking status: Never smoker Second hand tobacco smoke exposure: No Alcohol intake: never Substance use: never Substance use type: does not use Living arrangements: with family Occupation/Education: occupation 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 Gender identity (if verbalized by the patient): Female Sexual Orientation (if Verbalized by the Patient): Straight or Heterosexual Spiritual care concerns: No Anes - Eval Final PreProcedure Day of Procedure 10/01/25 09:49 Patient weight: obese Heart: regular rate and rhythm Lungs: clear to auscultation Airway: Mallampati scale class II Neurological: alert and oriented Last oral intake: >/= 8 hours ASA classification: II Emergent: no Anesthetic plan: proceed Anesthesia type and monitoring: general GIVS and standard monitoring Results Review: All pre-operative results and documents have been reviewed as part of the pre-operative evaluation. Informed Consent: The patient's anesthetic plan and its attendant risks and benefits were discussed with the patient/family/POA. Questions were solicited and answers provided to the satisfaction of the patient/family/POA.
--- NOTE | 2025-10-01 10:19 | S_PTH ---
PATIENT: Stacey Lin LOC: 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
--- NOTE | 2025-10-01 10:21 | SUR.OPER ---
fluid deficit 20
[2025-10-01] MEDS: KETOROLAC 15 MG/ML VIAL (*BKC) IV PUSH (10:22)
--- NOTE | 2025-10-01 10:23 | P.OP_ITS ---
Procedure Note - Detailed Date of Procedure 10/01/25 Pre-op Diagnosis menorrhaghia Post-op Diagnosis Same Procedure Performed D&C hysteroscopy Surgeon Kathya Henderson MD Anesthesia MAC Findings The uterus sounds to 11cm. Description of Procedure The patient was taken to the operating room and placed under anesthesia in the dorsal lithotomy position. She was prepped and draped in the usual sterile fashion. Calhoun speculum was placed in the vagina and the cervix grasped on the anterior lip with tenaculum. The uterus is sounded to 11cm. The diagnostic hysteroscope was placed and with the above-stated findings it was removed. The endometrium was curetted with a sharp curette until a good uterine cry was noted in all areas. Instruments are removed. Sponge, needle, and instrument counts are correct per the OR staff. The patient was taken to recovery in stable condition. Estimated Blood Loss 5 Drains No Packing No Pathology Yes (Endometrial curettings) Complications No immediate complications Condition Stable Disposition PACU
[2025-10-01 10:26] VITALS: BP 114/73; PULSE 81; RESP 12; O2SAT 100
[2025-10-01] MEDS: LACTATED RINGERS 1,000 ML 30 ML IV CONT (10:26)
[2025-10-01 10:55] VITALS: BP 96/58; PULSE 72; RESP 14; O2SAT 100
[2025-10-01 11:15] VITALS: BP 100/66; PULSE 72; RESP 16
[2025-10-01 11:20] VITALS: BP 96/71; PULSE 67; RESP 16
== END 2025-10-01 11:26 | disposition home or self-care (01) ==
PROVIDERS: Visit Provider Obstetrics & Gynecology Gynecology
PROC: 0U5B8ZZ Destruction of Endometrium, Via Natural or Artificial Opening Endoscopic (ICD-10-PCS; CPT 58563; principal; 2025-10-01 10:30)
DX: N92.0 Excessive and frequent menstruation with regular cycle (principal); E66.9 Obesity, unspecified; Z68.36 Body mass index [BMI] 36.0-36.9, adult
CPT/HCPCS: 58558; 88305; A9270; J1885; J2003; J2250; J2704; J3010; J7120